=== PATIENT | female | born 1990 | race Caucasian/White ===

== ENCOUNTER 2021-04-06 14:10 | Inpatient (IN) | payer OTHER ==
[~2021-04-06] VITALS: Ht 165.1 cm; Wt 84.9 kg
--- NOTE | 2021-04-06 14:10 | NUR ---
Arrived by ambulance from [place]. Got report from Hazel SAVAGE at 1323 pm. Alert and oriented to room. Side rails up x's 2 with call light in reach. Mother at bedside.
[2021-04-06 14:55] VITALS: BP 109/63
[2021-04-06] MEDS ORDERED: ACETAMINOPHEN 325 MG TABLET. PO PRN (15:00)
--- NOTE | 2021-04-06 15:04 | PDOC1 ---
History and Physical Date of Admission Date of Admission DATE: 04/06/21 TIME: 15:04 Identification/Chief Complaint Chief Complaint Abdominal pain Source Source: Patient History of Present Illness History of Present Illness Ms Frias is a 30-year-old female with no PMHx who initially presented to [facility] complaining of right lower quadrant pain. Onset was 1 day ago without any known inciting event, trauma, mechanism of injury, ingestion or known exposure. She noted some abdominal fullness and initially thought it could have been start of her menstrual cycle. Palpation makes worse, nothing known makes better. Reports pain is focal and constant to right lower quadrant that is manageable when she is completely still. She has not taken anything for the pain. She has no history of any intra-abdominal surgeries. She does have history of known right sided ovarian cyst and x1 prior vaginal delivery that was uncomplicated 5 years ago. She had Mirena IUD removed in November 2020 and denies any vaginal bleeding, has been intermittently compliant with OCP since then. Initial temperature 97.7 F, pulse 103/min, respirations 18/min, blood pressure 114/83, pulse oximetry 96% on room air Labs WBC 13.9, Hb 13, platelets 240, NA 136, K3.7, BUN 11, CR 0.6, LFTs within normal laboratory limits, hCG undetectable Patient given IV fluids, fentanyl, Zofran and 2 g cefoxitin with improvement in symptoms Abdomen pelvis with acute appendicitis with appendiceal phlegmon. General surgery attending contacted at [facility] and case reviewed, he agreed need for transfer for surgical intervention Transferred to [facility] for surgical consultation. Seen bedside with her . Pain 10/10 on arrival, guarding. Past Medical History Cardiovascular: No pertinent hx Past Surgical History Past Surgical History: Other (left neck cyst and lymph node resection) Family History Family History: High Cholestrol Social History Smoke: No ALCOHOL: none Drugs: None Current Medications Current Medications Current Medications Ondansetron HCl (Zofran) 4 mg PRN Q4HRS PRN IVP NAUSEA/VOMITING; Start 04/06/21 at 15:00; Status UNV Fentanyl Citrate (Fentanyl 2ml Vial) 25 mcg PRN Q3HRS PRN IVP SEVERE PAIN 7-10; Start 04/06/21 at 15:00; Status UNV Acetaminophen (Tylenol) 650 mg PRN Q6HRS PRN PO MILD PAIN / TEMP > 100.3'F; Start 04/06/21 at 15:00; Status UNV Allergies Allergies: Coded Allergies: Sulfa (Sulfonamide Antibiotics) (Verified Allergy, Intermediate, 04/06/21) ROS General: YES: Chills, Appetite; No: Night Sweats, Fatigue, Malaise, Other PSYCHOLOGICAL ROS: No: Anxiety, Behavioral Disorder, Concentration difficultie, Decreased libido, Depression, Disorientation, Hallucinations, Hostility, Irritablity, Memory difficulties, Mood Swings, Obsessive thoughts, Physical abuse, Sexual abuse, Sleep disturbances, Suicidal ideation, Other Eyes: No Blurry vision, No Decreased vision, No Double vision, No Dry eyes, No Excessive tearing, No Eye Pain, No Itchy Eyes, No Loss of vision, No Photophobia, No Scotomata, No Uses contacts, No Uses glasses, No Other HEENT: No: Heacaches, Visual Changes, Hearing change, Nasal congestion, Nasal discharge, Oral lesions, Sinus pain, Sore Throat, Epistaxis, Sneezing, Snoring, Tinnitus, Vertigo, Vocal changes, Other ALLERGY AND IMMUNOLOGY: No: Hives, Insect Bite Sensitivity, Itchy/Watery Eyes, Nasal Congestion, Post Nasal Drip, Seasonal Allergies, Other Hematological and Lymphatic: No: Bleeding Problems, Blood Clots, Blood Transfusions, Brusing, Night Sweats, Pallor, Swollen Lymph Nodes, Other ENDOCRINE: No: Breast Changes, Galactorrhea, Hair Pattern Changes, Hot Flashes, Malaise/lethargy, Mood Swings, Palpitations, Polydipsia/polyuria, Skin Changes, Temperature Intolerance, Unexpected Weight Changes, Other Breast: No New/Changing Breast Lumps, No Nipple changes, No Nipple discharge, No Other Respiratory: No: Cough, Hemoptysis, Orthopnea, Pleuritic Pain, Shortness of breath, SOB with excertion, Sputum Changes, Stridor, Tachypnea, Wheezing, Other Cardiovascular: No Chest Pain, No Palpitations, No Orthopnea, No Paroxysmal Noc. Dyspnea, No Edema, No Lt Headedness, No Other Gastrointestinal: Yes Nausea, Yes Abdominal Pain; No Vomiting, No Diarrhea, No Constipation, No Melena, No Hematochezia, No Other Genitourinary: No Dysuria, No Frequency, No Incontinence, No Hematuria, No Retention, No Discharge, No Urgency, No Pain, No Flank Pain, No Other, No , No , No , No , No , No , No Musculoskeletal: No Gait Disturbance, No Joint Pain, No Joint Stiffness, No Joint Swelling, No Muscle Pain, No Muscular Weakness, No Pain In:, No Swelling In:, No Other Neurological: No Behavorial Changes, No Bowel/Bladder ControlChng, No Confusion, No Dizziness, No Gait Disturbance, No Headaches, No Impaired Coord/balance, No Memory Loss, No Numbness/Tingling, No Seizures, No Speech Problems, No Tremors, No Visual Changes, No Weakness, No Other Skin: No Dry Skin, No Eczema, No Hair Changes, No Lumps, No Mole Changes, No Mottling, No Nail Changes, No Pruritus, No Rash, No Skin Lesion Changes, No Other, No Acne Physical Exam General: Alert, Oriented X3, Cooperative, moderate distress HEENT: Atraumatic, PERRLA, EOMI, Mucous membr. moist/pink Lungs: Clear to auscultation, Normal air movement Heart: S1S2, RRR, no thrills, no rubs, no gallops, no murmurs Abdomen: Normal bowel sounds, No hepatosplenomegaly, No masses, Other (RLQ tender) Rectal Exam: not examined Extremities: No clubbing, No cyanosis, No edema, Normal pulses, No tenderness/swelling Skin: No rashes, No breakdown, No significant lesion Neuro: Normal gait, Normal speech, Strength at 5/5 X4 ext, Normal tone, Sensation intact, Cranial nerves 3-12 NL, Reflexes 2+ Psych/Mental Status: Mental status NL, Mood NL Vitals Vitals Vital Signs Date Time Temp Pulse Resp B/P (MAP) Pulse Ox O2 Delivery O2 Flow Rate FiO2 04/06/21 14:55 98.6 83 20 109/63 (78) 96 Room Air 98.6 Images Images Transabdominal/Transvaginal Ultrasound: Uterus: 85 x 58 x 44 mm. 6 mm endometrial stripe. Small amount of fluid within. Right Ovary: 38 x 26 x 24 mm. Left Ovary: 34 x 26 x 17 mm. Vascular flow identified to bilateral ovaries. Moderate free fluid. IMPRESSION: * Vascular flow is seen to the ovaries. * Moderate free fluid in the pelvis which is more than typically seen. * Tubular structure seen in the right lower quadrant but difficult to tell if this is secondary to a small bowel loop or the appendix and the appendix is not well evaluated on this exam. * There is some fluid within the endometrial canal. CT abdomen pelvis with intravenous contrast: Findings: In the right lower quadrant there is a dilated, approximately 1.2 cm diameter appendix with indistinct margins at the tip, abundant adjacent inflammatory fat stranding periappendiceal phlegmonous change. A small peripherally calcified centrally lucent density measuring approximately 5 mm diameter may represent appendicolith, coronal image 25. Adjacent reactive adenopathy in the right lower quadrant. There are small pelvic free fluid. No intraperitoneal free air. The lung bases are clear. Liver and spleen are unremarkable. The gallbladder, pancreas, adrenals and kidneys are unremarkable. The small bowel is within normal limits. No evidence of obstruction. The cecal wall is minimally thickened adjacent to the appendiceal inflammatory changes. The remainder of the colon is within normal limits. Unremarkable uterus. Multi follicular ovaries. Vasculature is within normal limits. Soft tissues and osseous structures are unremarkable. Impression: 1. Acute appendicitis with periappendiceal phlegmonous change and a suspected peripherally dense 5 mm appendicolith. VTE Prophylaxis Ordered VTE Prophylaxis Devices: No VTE Pharmacological Prophylaxi: No Assessment/Plan Assessment/Plan A/P: Acute appendicitis - IV zosyn, NPO, IV fentanyl with morphine as well. IV zofran. General surgery consulted. Rapid covid 19 ordered (She is vaccinated with J&J vaccine) Sepsis - due to appendicitis, given IVF, will continue antibiotics, monitor WBC FEN - NPO PPX - ambulatory FULL CODE Dispo - inpatient Justifications for Admission Abdominal Pain Indications Is patient in severe pain?: Yes Justification for admission: Patient has severe pain that requires (parenteral analgesic-please state analgesics and route) at least every 4 hours necessitating inpatient level of care. Is NPO status required?: Yes Justification for admission: Patient may require to be NPO for greater 24hours making it medically necessary to manage patient as inpatient. Other Justification ROVERTO BUTLER MD Apr 06, 2021 15:04
[2021-04-06] MEDS ORDERED: IV RINGERS,LACTATED 1000ML 1,000 ML IV SCH (15:15)
[2021-04-06] MEDS: ONDANSETRON PF 4 MG/2 ML VIAL. IVP PRN ×2 (15:29→21:27)
[2021-04-06] MEDS: fentaNYL PF VIAL 100 MCG/2 ML VIAL IVP PRN ×2 (15:31→19:43)
[2021-04-06] MEDS ORDERED: BISACODYL 10 MG SUPP.RECT. PR PRN (15:45)
--- NOTE | 2021-04-06 16:34 | PDOC2 ---
CONSULT Date of Consult Date of Consult DATE: 04/06/21 TIME: 16:32 Reason for Consult Reason for Consult: Acute appendicitis Referring Physician Referring Physician: Valdo Identification/Chief Complaint Chief Complaint Right lower quadrant abdominal pain Source Source: Chart review, Patient History of Present Illness Reason for Visit: 30-year-old female with right lower quadrant abdominal pain for 24 hours in the emergency department further evaluation CT scan shows signs consistent with acute appendicitis mildly elevated white count. Past Medical History Cardiovascular: No pertinent hx Past Surgical History Past Surgical History: Other (left neck cyst and lymph node resection) Family History Family History: High Cholestrol Social History No ALCOHOL: none Drugs: None Current Medications Current Medications Current Medications Ondansetron HCl (Zofran) 4 mg PRN Q4HRS PRN IVP NAUSEA/VOMITING Last administered on 04/06/21at 15:29; Start 04/06/21 at 15:00 Fentanyl Citrate (Fentanyl 2ml Vial) 25 mcg PRN Q3HRS PRN IVP SEVERE PAIN 7-10 Last administered on 04/06/21at 15:31; Start 04/06/21 at 15:00 Acetaminophen (Tylenol) 650 mg PRN Q6HRS PRN PO MILD PAIN / TEMP > 100.3'F; Start 04/06/21 at 15:00 Ringer's Solution 1,000 ml @ 100 mls/hr Q10H IV Last administered on 04/06/21at 15:26; Start 04/06/21 at 15:15; Stop 04/07/21 at 01:14 Morphine Sulfate (Morphine Sulfate) 4 mg PRN Q2HR PRN IV PAIN; Start 04/06/21 at 15:45 Bisacodyl (Dulcolax Supp) 10 mg PRN DAILY PRN MA CONSTIPATION; Start 04/06/21 at 15:45 Piperacillin Sod/ Tazobactam Sod 3.375 gm/Sodium Chloride 50 ml @ 100 mls/hr Q6HRS IV ; Start 04/06/21 at 17:00 Fentanyl Citrate (Fentanyl 2ml Vial) 25 mcg PRN Q5MIN PRN IVP MILD PAIN 1-3; Start 04/07/21 at 06:00; Stop 04/08/21 at 05:59 Fentanyl Citrate (Fentanyl 2ml Vial) 50 mcg PRN Q5MIN PRN IVP MODERATE PAIN 4- 6; Start 04/07/21 at 06:00; Stop 04/08/21 at 05:59 Morphine Sulfate (Morphine Sulfate) 1 mg PRN Q10MIN PRN IVP SEVERE PAIN 7-10; Start 04/07/21 at 06:00; Stop 04/08/21 at 05:59 Ringer's Solution 1,000 ml @ 30 mls/hr Q24H IV ; Start 04/07/21 at 06:00; Stop 04/07/21 at 17:59 Hydromorphone HCl (Dilaudid) 0.5 mg PRN Q10MIN PRN IVP SEVERE PAIN 7-10, 2nd CHOICE; Start 04/07/21 at 06:00; Stop 04/08/21 at 05:59 Prochlorperazine Edisylate (Compazine) 5 mg PACU PRN PRN IVP NAUSEA, MRX1; Start 04/07/21 at 06:00; Stop 04/08/21 at 05:59 Allergies Allergies: Coded Allergies: Sulfa (Sulfonamide Antibiotics) (Verified Allergy, Intermediate, 04/06/21) ROS Gastrointestinal: Yes Abdominal Pain Physical Exam General: Alert, Oriented X3, Cooperative, mild distress HEENT: Atraumatic, EOMI Lungs: Clear to auscultation, Normal air movement Heart: Regular rate, No murmurs Abdomen: Normal bowel sounds, Soft, Other (Tender to palpation right lower quadrant) Extremities: No edema Skin: No significant lesion Neuro: Normal speech Psych/Mental Status: Mental status NL Vitals VITALS Vital Signs Date Time Temp Pulse Resp B/P (MAP) Pulse Ox O2 Delivery O2 Flow Rate FiO2 04/06/21 15:31 Room Air 04/06/21 14:55 98.6 83 20 109/63 (78) 96 98.6 Assessment/Plan Assessment/Plan Acute appendicitis plan laparoscopic appendectomy in MIRIAN Ahn MD Apr 06, 2021 16:34
[2021-04-06] MEDS: MORPHINE SULFATE 4 MG/ML INJ. IV PRN ×2 (16:36→21:27)
[2021-04-06] MEDS: PIPERACILLIN/TAZOBACTAM 3.375 GM in IV NORMAL SALINE 50ML 50 ML IV SCH ×2 (18:00→18:28)
[2021-04-06] MEDS: KETOROLAC 15 MG/ML VIAL. IVP SCH (18:29)
--- NOTE | 2021-04-06 18:36 | NUR ---
Zosyn duplicate order.
[2021-04-06 19:00] VITALS: BP 100/53
[2021-04-06 19:13] LABS: BILIRUBIN,URINE NEGATIVE (NEG); CLARITY,URINE CLEAR; COLOR,URINE YELLOW; NITRITE,URINE NEGATIVE (NEG); PH,URINE 6.5 (<5.0-8.0); PROTEIN,URINE NEGATIVE (NEG-TRACE); UROBILINOGEN,URINE 0.2 mg/dL (0.2 mg/dL)
[2021-04-06 19:19] LABS: BACTERIA,URINE FEW /HPF (0-FEW); RBC,URINE OCC /HPF (0-2); WBC,URINE 0 /HPF (0-4)
[2021-04-06] MEDS ORDERED: ZOLPIDEM 5 MG TABLET. PO PRN (20:00)
[2021-04-06] MEDS ORDERED: fentaNYL PF VIAL 100 MCG/2 ML VIAL IVP PRN ×2 (20:00)
[2021-04-06 23:00] VITALS: BP 91/56
[2021-04-07] MEDS: KETOROLAC 15 MG/ML VIAL. IVP SCH ×3 (00:02→07:22)
[2021-04-07] MEDS: PIPERACILLIN/TAZOBACTAM 3.375 GM in IV NORMAL SALINE 50ML 50 ML IV SCH ×4 (00:02→17:52)
[2021-04-07] MEDS ORDERED: PROCHLORPERAZINE 10 MG/2 ML VIAL. IVP PRN ×2 (06:00→07:15)
[2021-04-07] MEDS ORDERED: fentaNYL PF VIAL 100 MCG/2 ML VIAL IVP PRN ×4 (06:00→07:15)
[2021-04-07] MEDS ORDERED: IV RINGERS,LACTATED 1000ML 1,000 ML IV SCH ×2 (06:00→07:15)
[2021-04-07] MEDS ORDERED: HYDROmorphone 2 MG/ML VIAL IVP PRN ×2 (06:00→07:15)
--- NOTE | 2021-04-07 06:59 | NUR ---
Report to JANETTE Orta; pt transferred to PACU at this time.
[2021-04-07] MEDS ORDERED: BUPIVACAINE-EPI 0.5% 30 ML VIAL KIT. ONE (07:10)
[2021-04-07 07:11] LABS: BASO # 0.1 x10^3/uL (0.0-0.2); BASO % 1 % (0-3); EOS # 0.1 x10^3/uL (0.0-0.7); EOS % 0 % (0-3); HEMATOCRIT 36.6 % (36.0-47.0); HEMOGLOBIN 12.3 g/dL (12.0-15.5); LYMPH # 1.3 x10^3/uL (1.0-4.8); LYMPH % 11 % (24-48); MEAN CORPUSCULAR HEMOGLOBIN 30 pg (25-35); MEAN CORPUSCULAR HGB CONC 34 g/dL (31-37); MEAN CORPUSCULAR VOLUME 89 fL (79-100); MONO # 1.1 x10^3/uL (0.0-1.1); MONO % 9 % (0-9); NEUT # 9.8 x10^3/uL (1.8-7.7); NEUT % 79 % (31-73); PLATELET COUNT 230 x10^3/uL (140-400); RED BLOOD COUNT 4.11 x10^6/uL (3.50-5.40); RED CELL DISTRIBUTION WIDTH 12.9 % (11.5-14.5); WHITE BLOOD COUNT 12.4 x10^3/uL (4.0-11.0)
[2021-04-07] MEDS ORDERED: MORPHINE SULFATE 2 MG/ML INJ. IVP PRN (07:15)
[2021-04-07] MEDS ORDERED: PROPOFOL 10 MG/ML (20ML) VIAL. IV ONE (07:15)
[2021-04-07] MEDS ORDERED: ONDANSETRON PF 4 MG/2 ML VIAL. ONE (07:15)
[2021-04-07] MEDS ORDERED: DEXAMETHASONE SOD PHOS 4 MG/ML VIAL ONE (07:15)
[2021-04-07] MEDS ORDERED: LIDOCAINE 2% PF 5 ML VIAL. ONE (07:15)
[2021-04-07] MEDS ORDERED: fentaNYL PF VIAL 250 MCG/5 ML VIAL ONE (07:16)
[2021-04-07] MEDS ORDERED: ROCURONIUM 50 MG/5 ML VIAL. ONE (07:16)
[2021-04-07] MEDS ORDERED: PHENYLEPHRINE in 0.9% NACL PF 1 MG/10 ML SYRINGE. IV ONE (07:18)
[2021-04-07] MEDS ORDERED: MIDAZOLAM HCL/PF 2 MG/2 ML VIAL. ONE (07:18)
[2021-04-07 07:34] LABS: ALBUMIN 2.9 g/dL (3.4-5.0); ALBUMIN/GLOBULIN RATIO 0.7 (1.0-1.7); CALCIUM 8.8 mg/dL (8.5-10.1); CREATININE 0.7 mg/dL (0.6-1.0); GFR 98.3; POTASSIUM 3.6 mmol/L (3.5-5.1); TOTAL BILIRUBIN 0.9 mg/dL (0.2-1.0); TOTAL PROTEIN 6.8 g/dL (6.4-8.2)
[2021-04-07] MEDS ORDERED: KETOROLAC 30 MG/ML VIAL. ONE (08:18)
[2021-04-07] MEDS ORDERED: GLYCOPYRROLATE 1 MG/5 ML VIAL. ONE (08:18)
[2021-04-07] MEDS ORDERED: NEOSTIGMINE METHYLSULFATE 5 MG/5 ML SYRINGE. ONE (08:19)
--- NOTE | 2021-04-07 08:28 | PDOC4 ---
Operative Note Operative Note Date: April 072020 at 826 Preoperative diagnosis: Acute appendicitis Postoperative diagnosis: Same Procedure: Laparoscopic appendectomy Surgeon: Riley Specimen: Appendix Dictation: Patient is a 30-year-old female was mated to the hospital with right lower quadrant abdominal pain and a CT scan showing signs consistent with acute appendicitis. Procedure laparoscopic appendectomy was explained to the patient detail risk benefits were also discussed including bleeding infection injury to intra-abdominal contents pus necessitating further open operations alternatives to this procedure also discussed with the patient who seemed to understand and gave a verbal and written consent to have the procedure performed. Patient was taken to the operating room placed in the supine position general anesthesia was initiated once patient was sleeping intubated her abdomen was prepped and draped usual sterile fashion using ChloraPrep. Area just below the umbilicus was injected with quarter percent Marcaine with epinephrine incision was made 11 blade scalpel and a varies needle was placed within the abdomen creating pneumoperitoneum once this was complete 12 mm port was placed in a 5 mm camera is placed within the abdomen which was inspected was noted in the right lower quadrant inflamed appendix with some free fluid. 5 mm port was placed low in the midline in the pelvis and a 5 mm port was placed in the right midabdomen. The base of the appendix was grasped retracted towards the anterior abdominal wall a window was propagated through the mesoappendix at the base of the appendix with a [place] dissector an Endo SPIKE stapler was used to staple and transect the base of the appendix there is the appendix was pretty densely adherent to the cecum was bluntly dissected off of the cecum the mesoappendix was then stapled and transected with a Endo SPIKE stapler and the appendix was placed in Endo Catch bag removed and the umbilicus right lower quadrant pelvis were irrigated and suctioned dry hemostasis deemed to be appropriate the pneumoperitoneum was reduced all ports were removed the fascial defect at the umbilicus was closed with a [id number] 0 Vicryl suture and the skin was reapproximated all port sites with 4-0 subcuticular Monocryl Mastisol Steri- Strips and island dressings were applied. Patient was awakened and extubated in the operating room taken to recovery in stable condition all sponge instrument needle counts listed as correct estimated blood loss 10 mL MIRIAN ROMERO MD Apr 07, 2021 08:28
[2021-04-07] MEDS ORDERED: SEVOFLURANE 31 TO 60 MINUTES. IH ONE (08:34)
[2021-04-07] MEDS ORDERED: MORPHINE SULFATE 2 MG/ML INJ. ONE (09:04)
[2021-04-07] MEDS: MORPHINE SULFATE 2 MG/ML INJ. IVP PRN ×2 (09:06→09:19)
[2021-04-07 10:00] VITALS: BP 105/70
--- NOTE | 2021-04-07 10:09 | NUR ---
SW following. Discussed with RN, pt from home with , room air, NPO, Rapid COVID-19 negative. Pt having a lap appy. RN advised no SW needs at this time. SW will continue to follow.
[2021-04-07 10:15] VITALS: BP 107/68
[2021-04-07 10:30] VITALS: BP 110/65
[2021-04-07 10:45] VITALS: BP 108/70
--- NOTE | 2021-04-07 10:48 | PDOC ---
[employer] PROGRESS NOTE Date of Service DOS: DATE: 04/07/21 TIME: 10:46 Chief Complaint Chief Complaint Acute appendicitis - IV zosyn, NPO, IV fentanyl with morphine as well. IV zofran. General surgery consulted. Rapid covid 19 ordered (She is vaccinated with J&J vaccine) Sepsis - due to appendicitis, given IVF, will continue antibiotics, monitor WBC FEN - NPO PPX - ambulatory FULL CODE Dispo - inpatient History of Present Illness History of Present Illness Ms Frias is a 30-year-old female with no PMHx who initially presented to [facility] complaining of right lower quadrant pain. Onset was 1 day ago without any known inciting event, trauma, mechanism of injury, ingestion or known exposure. She noted some abdominal fullness and initially thought it could have been start of her menstrual cycle. Palpation makes worse, nothing known makes better. Reports pain is focal and constant to right lower quadrant that is manageable when she is completely still. She has not taken anything for the pain. She has no history of any intra-abdominal surgeries. She does have history of known right sided ovarian cyst and x1 prior vaginal delivery that was uncomplicated 5 years ago. She had Mirena IUD removed in November 2020 and denies any vaginal bleeding, has been intermittently compliant with OCP since then. Initial temperature 97.7 F, pulse 103/min, respirations 18/min, blood pressure 114/83, pulse oximetry 96% on room air Labs WBC 13.9, Hb 13, platelets 240, NA 136, K3.7, BUN 11, CR 0.6, LFTs within normal laboratory limits, hCG undetectable Patient given IV fluids, fentanyl, Zofran and 2 g cefoxitin with improvement in symptoms Abdomen pelvis with acute appendicitis with appendiceal phlegmon. General surgery attending contacted at [facility] and case reviewed, he agreed need for transfer for surgical intervention Transferred to [facility] for surgical consultation. Seen bedside with her . Pain 10/10 on arrival, guarding. 04/07: Patient seen s/p laparoscopic appendectomy. Some postsurgical tenderness. Discussed discharge likely tomorrow, patient okay with that. Vitals/I&O Vitals/I&O: Vital Signs Date Time Temp Pulse Resp B/P (MAP) Pulse Ox O2 Delivery O2 Flow Rate FiO2 04/07/21 10:15 107/68 (81) 04/07/21 10:00 98.3 77 18 95 Room Air 98.3 04/07/21 08:35 10 I & O 04/06/21 04/06/21 04/07/21 15:00 23:00 07:00 Intake Total 550 ml 1100 ml Balance 550 ml 1100 ml Physical Exam General: Alert, Oriented X3, Cooperative, mild distress Heart: Regular rate, No murmurs Abdomen: Normal bowel sounds, Soft, Other (Tender to palpation right lower quadrant) Extremities: No edema Skin: No significant lesion Labs Labs: Laboratory Tests Test 04/06/21 16:20 04/06/21 17:25 04/06/21 19:45 04/07/21 06:50 SARS-CoV-2 RNA (ARSH) Negative (Negative) Urine Collection Type Unknown Urine Color Yellow Urine Clarity Clear Urine pH 6.5 (<5.0-8.0) Urine Specific [place] >=1.030 (1.000-1.030) Urine Protein Negative mg/dL (NEG-TRACE) Urine Glucose (UA) Negative mg/dL (NEG) Urine Ketones (Stick) >=80 mg/dL (NEG) Urine Blood Trace (NEG) Urine Nitrite Negative (NEG) Urine Bilirubin Negative (NEG) Urine Urobilinogen Dipstick 0.2 mg/dL (0.2 mg/dL) Urine Leukocyte Esterase Negative (NEG) Urine RBC Occ /HPF (0-2) Urine WBC 0 /HPF (0-4) Urine Squamous Epithelial Cells Mod /LPF Urine Bacteria Few /HPF (0-FEW) SARS-CoV-2 Antigen (Rapid) Negative (NEGATIVE) White Blood Count 12.4 x10^3/uL (4.0-11.0) Red Blood Count 4.11 x10^6/uL (3.50-5.40) Hemoglobin 12.3 g/dL (12.0-15.5) Hematocrit 36.6 % (36.0-47.0) Mean Corpuscular Volume 89 fL (79-100) Mean Corpuscular Hemoglobin 30 pg (25-35) Mean Corpuscular Hemoglobin Concent 34 g/dL (31-37) Red Cell Distribution Width 12.9 % (11.5-14.5) Platelet Count 230 x10^3/uL (140-400) Neutrophils (%) (Auto) 79 % (31-73) Lymphocytes (%) (Auto) 11 % (24-48) Monocytes (%) (Auto) 9 % (0-9) Eosinophils (%) (Auto) 0 % (0-3) Basophils (%) (Auto) 1 % (0-3) Neutrophils # (Auto) 9.8 x10^3/uL (1.8-7.7) Lymphocytes # (Auto) 1.3 x10^3/uL (1.0-4.8) Monocytes # (Auto) 1.1 x10^3/uL (0.0-1.1) Eosinophils # (Auto) 0.1 x10^3/uL (0.0-0.7) Basophils # (Auto) 0.1 x10^3/uL (0.0-0.2) Sodium Level 139 mmol/L (136-145) Potassium Level 3.6 mmol/L (3.5-5.1) Chloride Level 101 mmol/L (98-107) Carbon Dioxide Level 28 mmol/L (21-32) Anion Gap 10 (6-14) Blood Urea Nitrogen 8 mg/dL (7-20) Creatinine 0.7 mg/dL (0.6-1.0) Estimated GFR (Cockcroft-Gault) 98.3 BUN/Creatinine Ratio 11 (6-20) Glucose Level 97 mg/dL (70-99) Calcium Level 8.8 mg/dL (8.5-10.1) Total Bilirubin 0.9 mg/dL (0.2-1.0) Aspartate Amino Transf (AST/SGOT) 8 U/L (15-37) Alanine Aminotransferase (ALT/SGPT) 17 U/L (14-59) Alkaline Phosphatase 73 U/L (46-116) Total Protein 6.8 g/dL (6.4-8.2) Albumin 2.9 g/dL (3.4-5.0) Albumin/Globulin Ratio 0.7 (1.0-1.7) Comment Review of Relevant I have reviewed the following items eliseo (where applicable) has been applied. Medications: Current Medications Medications (Trade) Dose Ordered Sig/Melvi Route PRN Reason Start Time Stop Time Status Last Admin Dose Admin Ondansetron HCl (Zofran) 4 mg PRN Q4HRS PRN IVP NAUSEA/VOMITING 9/15/21 15:00 04/06/21 21:27 Fentanyl Citrate (Fentanyl 2ml Vial) 25 mcg PRN Q3HRS PRN IVP MILD PAIN 1-3 04/06/21 15:00 04/06/21 19:43 Ringer's Solution 1,000 ml @ 100 mls/hr Q10H IV 04/06/21 15:15 04/07/21 05:49 DC 04/06/21 15:26 Morphine Sulfate (Morphine Sulfate) 4 mg PRN Q2HR PRN IV PAIN NOT CONTROLLED BY FENTANY 04/06/21 15:45 04/06/21 21:27 Piperacillin Sod/ Tazobactam Sod 3.375 gm/Sodium Chloride 50 ml @ 100 mls/hr Q6HRS IV 04/06/21 17:00 04/07/21 06:16 Morphine Sulfate (Morphine Sulfate) 1 mg PRN Q10MIN PRN IVP SEVERE PAIN 7-10 04/07/21 06:00 04/07/21 18:00 04/07/21 09:19 Ketorolac Tromethamine (Toradol 15mg Vial) 15 mg Q6HRS IVP 04/06/21 18:00 04/07/21 17:59 04/07/21 06:15 Zolpidem Tartrate (Ambien) 5 mg PRN QHS PRN PO INSOMNIA 04/06/21 20:00 04/06/21 21:16 Bupivacaine HCl/ Epinephrine Bitart (Sensorcain-Epi 0.5% Kit) 30 ml STK-MED ONCE .ROUTE 04/07/21 07:10 04/07/21 07:10 DC 04/07/21 08:10 Justifications for Admission Abdominal Pain Indications Is patient in severe pain?: Yes Justification for admission: Patient has severe pain that requires (parenteral analgesic-please state analgesics and route) at least every 4 hours necessitating inpatient level of care. Is NPO status required?: Yes Justification for admission: Patient may require to be NPO for greater 24hours making it medically necessary to manage patient as inpatient. Other Justification LAUREN SKELTON MD Apr 07, 2021 10:48
[2021-04-07 11:15] VITALS: BP 104/62
[2021-04-07] MEDS: MORPHINE SULFATE 4 MG/ML INJ. IV PRN ×2 (12:49→15:32)
[2021-04-07 15:05] VITALS: BP 112/70
[2021-04-07] MEDS ORDERED: LACT1CAP19 PO (18:13)
[2021-04-07] MEDS ORDERED: TRAM50TA PO (18:13)
[2021-04-07] MEDS ORDERED: AMOX1TAB61 PO (18:13)
--- NOTE | 2021-04-07 18:32 | NUR ---
Discharge Note: ALEXANDRIA WILDER [address] Discharge instructions and discharge home medications reviewed with Patient and spouse and a copy given. All questions have been answered and understanding verbalized. The following instructions and handouts were given: information about follow up appointments, medications, activity, diet. Discontinued lines and drains: IV line in right AC removed, catheter tip intact. Patient discharged to home with self care with , wheelchair used for mobility to discharge vehicle.
[2021-04-08] MEDS ORDERED: LACTOBACILLUS RHAMNOSUS GG 1 CAPSULE. PO SCH (09:00)
--- NOTE | 2021-04-08 10:11 | PDOC3 ---
Discharge Summary Visit Information Date of Admission: Apr 06, 2021 Date of Discharge: Apr 07, 2021 Brief Hospital Course Allergies Allergies Coded Allergies Type Severity Reaction Last Updated Verified Sulfa (Sulfonamide Antibiotics) Allergy Intermediate 04/06/21 Yes Vital Signs Vital Signs Date Time Temp Pulse Resp B/P (MAP) Pulse Ox O2 Delivery O2 Flow Rate FiO2 04/07/21 15:05 97.8 99 18 112/70 (84) 97 Room Air 97.8 04/07/21 08:35 10 Lab Results Laboratory Tests Test 04/06/21 16:20 04/06/21 17:25 04/06/21 19:45 04/07/21 06:50 SARS-CoV-2 RNA (ARSH) Negative (Negative) Urine Collection Type Unknown Urine Color Yellow Urine Clarity Clear Urine pH 6.5 (<5.0-8.0) Urine Specific [place] >=1.030 (1.000-1.030) Urine Protein Negative mg/dL (NEG-TRACE) Urine Glucose (UA) Negative mg/dL (NEG) Urine Ketones (Stick) >=80 mg/dL (NEG) Urine Blood Trace (NEG) Urine Nitrite Negative (NEG) Urine Bilirubin Negative (NEG) Urine Urobilinogen Dipstick 0.2 mg/dL (0.2 mg/dL) Urine Leukocyte Esterase Negative (NEG) Urine RBC Occ /HPF (0-2) Urine WBC 0 /HPF (0-4) Urine Squamous Epithelial Cells Mod /LPF Urine Bacteria Few /HPF (0-FEW) SARS-CoV-2 Antigen (Rapid) Negative (NEGATIVE) White Blood Count 12.4 x10^3/uL (4.0-11.0) Red Blood Count 4.11 x10^6/uL (3.50-5.40) Hemoglobin 12.3 g/dL (12.0-15.5) Hematocrit 36.6 % (36.0-47.0) Mean Corpuscular Volume 89 fL (79-100) Mean Corpuscular Hemoglobin 30 pg (25-35) Mean Corpuscular Hemoglobin Concent 34 g/dL (31-37) Red Cell Distribution Width 12.9 % (11.5-14.5) Platelet Count 230 x10^3/uL (140-400) Neutrophils (%) (Auto) 79 % (31-73) Lymphocytes (%) (Auto) 11 % (24-48) Monocytes (%) (Auto) 9 % (0-9) Eosinophils (%) (Auto) 0 % (0-3) Basophils (%) (Auto) 1 % (0-3) Neutrophils # (Auto) 9.8 x10^3/uL (1.8-7.7) Lymphocytes # (Auto) 1.3 x10^3/uL (1.0-4.8) Monocytes # (Auto) 1.1 x10^3/uL (0.0-1.1) Eosinophils # (Auto) 0.1 x10^3/uL (0.0-0.7) Basophils # (Auto) 0.1 x10^3/uL (0.0-0.2) Sodium Level 139 mmol/L (136-145) Potassium Level 3.6 mmol/L (3.5-5.1) Chloride Level 101 mmol/L (98-107) Carbon Dioxide Level 28 mmol/L (21-32) Anion Gap 10 (6-14) Blood Urea Nitrogen 8 mg/dL (7-20) Creatinine 0.7 mg/dL (0.6-1.0) Estimated GFR (Cockcroft-Gault) 98.3 BUN/Creatinine Ratio 11 (6-20) Glucose Level 97 mg/dL (70-99) Calcium Level 8.8 mg/dL (8.5-10.1) Total Bilirubin 0.9 mg/dL (0.2-1.0) Aspartate Amino Transf (AST/SGOT) 8 U/L (15-37) Alanine Aminotransferase (ALT/SGPT) 17 U/L (14-59) Alkaline Phosphatase 73 U/L (46-116) Total Protein 6.8 g/dL (6.4-8.2) Albumin 2.9 g/dL (3.4-5.0) Albumin/Globulin Ratio 0.7 (1.0-1.7) Brief Hospital Course Ms. Frias is a 30 old female who presented with acute appendicitis. Consultation with general surgery. She laparoscopic appendectomy without complication. She was stable for discharge the next day course of antibiotics follow-up with PCP and general surgery outpatient. Discharge Information Condition at Discharge: Improved Disposition/Orders: D/C to Home Scheduled Amoxicillin/Potassium Clav (Augmentin 875-125 Tablet) 1 Each Tablet, 1 TAB PO BID for Appendicitis for 7 Days, #14 Ref 0 Prescribed by: ROVERTO BUTLER MD on 04/07/211812 Lactobacillus Rhamnosus Gg (Culturelle) 1 Each Cap.sprink, 1 CAP PO BID for Appendicitis for 7 Days, #14 Prescribed by: ROVERTO BUTLER MD on 04/07/211812 Scheduled PRN Tramadol Hcl (Tramadol Hcl) 50 Mg Tablet, 50 MG PO PRN Q6HRS PRN for PAIN for 6 Days, #15 Prescribed by: ROVERTO BUTLER MD on 04/07/211812 Justicifation of Admission Dx: Justifications for Admission: Justification of Admission Dx: Yes LAUREN SKELTON MD Apr 08, 2021 10:11
== END 2021-04-07 18:32 | disposition home or self-care (01) | DRG 854 ==
LOC: 4 NORTH 14:10
PROVIDERS: ADMIT Internal Medicine; ATTEND Internal Medicine
PROC: 0DTJ4ZZ Resection of Appendix, Percutaneous Endoscopic Approach (ICD-10-PCS; principal; 2021-04-07 08:00)
DX: A41.9 Sepsis, unspecified organism (principal); K35.80 Unspecified acute appendicitis; Z20.822 Contact with and (suspected) exposure to COVID-19; Z88.2 Allergy status to sulfonamides; Z79.899 Other long term (current) drug therapy; Z88.8 Allergy status to other drugs, medicaments and biological substances
CPT/HCPCS: 36415; 80053; 81001; 85025; 87426; A4223; A4314; A4930; J1100; J1885; J2250; J2270; J2370; J2405; J2543; J2704; J2710; J3010; J3490; J7120; U0003; U0005; G0378

== ENCOUNTER 2021-05-06 13:13 | Inpatient (IN) | payer OTHER ==
[2021-05-06] VITALS (13 sets, daily range): BP systolic 95–137; BP diastolic 56–77
[~2021-05-06] VITALS: Ht 165.1 cm; Wt 75.0 kg
[~2021-05-06 13:13] MED LIST: AMOX1TAB61 PO; LACT1CAP19 PO; TRAM50TA PO
[2021-05-06] MEDS ORDERED: PIPERACILLIN/TAZOBACTAM 3.375 GM in IV NORMAL SALINE 50ML 50 ML IV ONE (13:30)
[2021-05-06] MEDS ORDERED: IV NORMAL SALINE 1000ML BAG 1,000 ML IV SCH (13:30)
--- NOTE | 2021-05-06 13:52 | PHYS DOC ---
Past Medical History Past Surgical History: Appendectomy (DESHAWN BAPTISTE APRN) Smoking Status: Never Smoker Alcohol Use: None (DESHAWN BAPTISTE APRN) General Adult EDM: Chief Complaint: POST-OP PROBLEM HPI: HPI: Patient is a 30 year old female who presents with appendectomy by Dr. Lin on April 06. She states that she saw Dr. Lin 2 days ago and let him know that she was having pain and she states that on Sunday night she was actually having fevers. She states that he told her that she must have injured her abdomen somehow. She states she then went to a different doctor and they sent her to diagnostic imaging center and had a CT done today that showed a possible abscess in that right lower quadrant. He sent her here for evaluation today. Patient denies needing any pain medication at this time. She is rating her pain about 4 out of 10. She denies nausea, vomiting, diarrhea, constipation, dizziness, headache, chest pain, shortness of air. (DESHAWN BAPTISTE APRN) Review of Systems: Review of Systems: Constitutional: + fever or denies chills. [] Eyes: Denies change in visual acuity. [] HENT: Denies nasal congestion or sore throat. [] Respiratory: Denies cough or shortness of breath. [] Cardiovascular: Denies chest pain or edema. [] GI: +abdominal pain, denies nausea, vomiting, bloody stools or diarrhea. [] : Denies dysuria. [] Musculoskeletal: Denies back pain or joint pain. [] Integument: Denies rash. [] Neurologic: Denies headache, focal weakness or sensory changes. [] Endocrine: Denies polyuria or polydipsia. [] Lymphatic: Denies swollen glands. [] Psychiatric: Denies depression or anxiety. [] (DESHAWN BAPTISTE APRN) Heart Score: C/O Chest Pain: No (DESHAWN BAPTISTE APRN) Current Medications: Current Medications Medications (Trade) Dose Ordered Sig/Melvi Start Time Stop Time Status Last Admin Dose Admin Piperacillin Sod/ Tazobactam Sod 3.375 gm/Sodium Chloride 50 ml @ 100 mls/hr 1X ONCE 05/06/21 13:30 05/06/21 13:59 Sodium Chloride 1,000 ml @ 1,000 mls/hr Q1H 10/15/21 13:30 05/06/21 14:29 (DESHAWN BAPTISTE CHIL[employer] DIRECTOR) Allergies: Allergies: Allergies Coded Allergies Type Severity Reaction Last Updated Verified Sulfa (Sulfonamide Antibiotics) Allergy Intermediate 04/06/21 Yes (DESHAWN BAPTISTE APRN) Physical Exam: PE: Constitutional: Well developed, well nourished, no acute distress, non-toxic appearance. [] HENT: Normocephalic, atraumatic, bilateral external ears normal, oropharynx moist, no oral exudates, nose normal. [] Eyes: PERRLA, EOMI, conjunctiva normal, no discharge. [] Neck: Normal range of motion, no tenderness, supple, no stridor. [] Cardiovascular:Heart rate regular rhythm, no murmur [] Lungs & Thorax: Bilateral breath sounds clear to auscultation [] Abdomen: Bowel sounds normal, soft, right lower quadrant tenderness, no masses, no pulsatile masses. [] Skin: Warm, dry, no erythema, no rash. [] Back: No tenderness, no CVA tenderness. [] Extremities: No tenderness, no cyanosis, no clubbing, ROM intact, no edema. [] Neurologic: Alert and oriented X 3, normal motor function, normal sensory function, no focal deficits noted. [] Psychologic: Affect normal, judgement normal, mood normal. [] (DESHAWN BAPTISTE CHILDR[employer] DIRECTOR) Current Patient Data: Vital Signs: Vital Signs Date Time Temp Pulse Resp B/P (MAP) Pulse Ox O2 Delivery O2 Flow Rate FiO2 05/06/21 13:25 98.6 105 12 132/83 (99) 99 Room Air 98.6 (DESHAWN BAP[employer]ISTE [employer] DIRECTOR) EKG: EKG: [] (DESHAWN BAP[employer]E [employer] DIRECTOR) Radiology/Procedures: Radiology/Procedures: [] (DESHAWN BAP[employer]E [employer]IL[employer] DIRECTOR) Course & Med Decision Making: Course & Med Decision Making Pertinent Labs and Imaging studies reviewed. (See chart for details) See HPI. Alert and oriented x4. Ambulatory steady gait. Skin pink warm and dry. Right lower quadrant tenderness but no rigidity or guarding. Abdomen is soft. The diagnostic imaging center did send over a copy of the CT report. It showed abnormal proximal ascending colon with a 9 cm segment of mural wall thickening. Moderate extensive pericolonic inflammatory changes also in the right lower quadrant. A less than 3 cm fluid collection in the right lower quadrant posterior to the ascending colon is consistent with either postoperative fluid collection or abscess. Small amount of pelvic free fluid. Bilateral ovarian cyst. Mild diffuse enlargement of the heterogeneity of the right psoas muscle, also likely inflammatory. Afebrile. I have started Zosyn and a fluid bolus IV. Patient admitted to hospitalist. [] (DESHAWN BAPTISTE APRN) Dragon Disclaimer: Dragon Disclaimer: This electronic medical record was generated, in whole or in part, using a voice recognition dictation system. (DESHAWN BAPTISTE APRN) Departure Departure Impression: Primary Impression: Post-operative infection Qualified Codes: T81.40XA - Infection following a procedure, unspecified, initial encounter Disposition: ADMITTED INPATIENT Admitting Physician: LEON (DESHAWN BAPTISTE APRN) Condition: STABLE Referrals: JANEY VILLA (PCP) Attending Signature Attending Signature I have reviewed the PA/MARINE FITTER's note and plan of care. I was available for consultation as needed during the patient's visit in the emergency department. I agree with the clinical impression, plan, and disposition. (MEET PRATER DO) DESHAWN BAPTISTE APRN May 06, 2021 13:52 MEET PRATER DO May 07, 2021 06:49
[2021-05-06 14:22] LABS: BILIRUBIN,URINE NEGATIVE (NEG); CLARITY,URINE CLEAR; COLOR,URINE YELLOW; NITRITE,URINE NEGATIVE (NEG); PH,URINE 5.5 (<5.0-8.0); PROTEIN,URINE NEGATIVE (NEG-TRACE)
[2021-05-06 14:23] LABS: BASO % 0 % (0-3); EOS % 0 % (0-3); HEMATOCRIT 28.7 % (36.0-47.0); HEMOGLOBIN 9.2 g/dL (12.0-15.5); LYMPH # 1.5 x10^3/uL (1.0-4.8); LYMPH % 15 % (24-48); MEAN CORPUSCULAR HEMOGLOBIN 28 pg (25-35); MEAN CORPUSCULAR HGB CONC 32 g/dL (31-37); MEAN CORPUSCULAR VOLUME 86 fL (79-100); MONO # 0.6 x10^3/uL (0.0-1.1); MONO % 6 % (0-9); NEUT # 7.7 x10^3/uL (1.8-7.7); NEUT % 78 % (31-73); PLATELET COUNT 461 x10^3/uL (140-400); RED BLOOD COUNT 3.33 x10^6/uL (3.50-5.40); RED CELL DISTRIBUTION WIDTH 13.6 % (11.5-14.5); WHITE BLOOD COUNT 9.8 x10^3/uL (4.0-11.0)
[2021-05-06 14:32] LABS: CALCIUM 8.8 mg/dL (8.5-10.1); CREATININE 0.6 mg/dL (0.6-1.0); GFR 117.4; POTASSIUM 3.3 mmol/L (3.5-5.1)
[2021-05-06 14:46] LABS: BACTERIA,URINE FEW /HPF (0-FEW); WBC,URINE OCC /HPF (0-4)
[2021-05-06 14:46] LABS: ALBUMIN 2.5 g/dL (3.4-5.0); ALBUMIN/GLOBULIN RATIO 0.5 (1.0-1.7); TOTAL BILIRUBIN 0.3 mg/dL (0.2-1.0); TOTAL PROTEIN 7.7 g/dL (6.4-8.2)
--- NOTE | 2021-05-06 15:08 | PDOC1 ---
History and Physical Date of Admission Date of Admission DATE: 05/06/21 TIME: 15:08 Identification/Chief Complaint Chief Complaint Abdominal pain Source Source: Caregiver, Chart review, Patient History of Present Illness History of Present Illness Ms Frias is a 30-year-old female with no PMHx who presents from outpatient imaging center for complaints of abdominal pain and subjective fevers for the past week. Reports pain is focal and to right lower quadrant when she is moving. She went to her general surgery on 05/04 c/o pain and subjective fevers that began 05/03 and thinks she was instructed to treat it as abdominal muscle strain. Had a PCP visit 05/05 and went to diagnostic imaging center and had a CT done today that she states showed a possible abscess in that right lower quadrant. Pain / 10 only with movement that has been relieved with ibuprofen. She denies nausea, vomiting, diarrhea, constipation, dizziness, headache, chest pain, shortness of air. Imaging report: "Abnormal proximal ascending colon with a 9 cm segment of mural wall thickening. Moderate extensive pericolonic inflammatory changes also in the right lower quadrant. A less than 3 cm fluid collection in the right lower quadrant posterior to the ascending colon is consistent with either postoperative fluid collection or abscess. Small amount of pelvic free fluid. Bilateral ovarian cyst. Mild diffuse enlargement of the heterogeneity of the right psoas muscle, also likely inflammatory." Labs with WBC 9.8, Hb 9.2, platelets 461, NA 138, K3.3, BUN 8, CR 0.6, glucose 88, lactate 0.8, calcium 8.8, bilirubin 0.3, AST 24, ALT 30, alkaline phosphatase 172, albumin 2.5, urinalysis negative hCG negative leuk esterase negative nitrites large blood. ED called for admission, ordered Zosyn and a fluid bolus IV. I discussed with interventional radiology to further investigate for possible abscess drainage. Admitted for further care. Historically She was seen at [facility] in [place] 04/06/2021 transferred to [facility] for treatment for acute appendicitis with uncomplicated laparoscopic appendectomy on 04/07/2021. She does have history of known right sided ovarian cyst and x1 prior vaginal delivery that was uncomplicated 5 years ago. She had Mirena IUD removed in November 2020 and denies any vaginal bleeding, has been intermittently compliant with OCP since then. Past Medical History Cardiovascular: No pertinent hx Past Surgical History Past Surgical History: Appendectomy (04/07/2021), Other (Mirena) Family History Family History: High Cholestrol Social History Smoke: No ALCOHOL: none Drugs: None Current Medications Current Medications Current Medications Sodium Chloride 1,000 ml @ 1,000 mls/hr Q1H IV Last administered on 05/06/21at 15:04; Start 05/06/21 at 13:30; Stop 05/06/21 at 14:29; Status DC Piperacillin Sod/ Tazobactam Sod 3.375 gm/Sodium Chloride 50 ml @ 100 mls/hr 1X ONCE IV ; Start 05/06/21 at 13:30; Stop 05/06/21 at 13:59; Status DC Sodium Chloride 1,000 ml @ 125 mls/hr Q8H IV ; Start 05/06/21 at 15:15; Stop 05/07/21 at 15:14 Potassium Chloride/Dextrose/ Sod Cl 1,000 ml @ 80 mls/hr [id number] IV ; Start 05/06/21 at 15:15; Stop 05/07/21 at 03:44; Status UNV Active Scripts Active Tramadol Hcl 50 Mg Tablet 50 Mg PO PRN Q6HRS PRN 6 Days Augmentin 875-125 Tablet (Amoxicillin/Potassium Clav) 1 Each Tablet 1 Tab PO BID 7 Days Culturelle (Lactobacillus Rhamnosus Gg) 1 Each Cap.sprink 1 Cap PO BID 7 Days Allergies Allergies: Coded Allergies: Sulfa (Sulfonamide Antibiotics) (Verified Allergy, Intermediate, 04/06/21) ROS General: YES: Fatigue, Malaise, Appetite; No: Chills, Night Sweats, Other PSYCHOLOGICAL ROS: YES: Anxiety; No: Behavioral Disorder, Concentration difficultie, Decreased libido, Depression, Disorientation, Hallucinations, Hostility, Irritablity, Memory difficulties, Mood Swings, Obsessive thoughts, Physical abuse, Sexual abuse, Sleep disturbances, Suicidal ideation, Other Eyes: No Blurry vision, No Decreased vision, No Double vision, No Dry eyes, No Excessive tearing, No Eye Pain, No Itchy Eyes, No Loss of vision, No Photophobia, No Scotomata, No Uses contacts, No Uses glasses, No Other HEENT: No: Heacaches, Visual Changes, Hearing change, Nasal congestion, Nasal discharge, Oral lesions, Sinus pain, Sore Throat, Epistaxis, Sneezing, Snoring, Tinnitus, Vertigo, Vocal changes, Other ALLERGY AND IMMUNOLOGY: No: Hives, Insect Bite Sensitivity, Itchy/Watery Eyes, Nasal Congestion, Post Nasal Drip, Seasonal Allergies, Other Hematological and Lymphatic: No: Bleeding Problems, Blood Clots, Blood Transfusions, Brusing, Night Sweats, Pallor, Swollen Lymph Nodes, Other ENDOCRINE: No: Breast Changes, Galactorrhea, Hair Pattern Changes, Hot Flashes, Malaise/lethargy, Mood Swings, Palpitations, Polydipsia/polyuria, Skin Changes, Temperature Intolerance, Unexpected Weight Changes, Other Breast: No New/Changing Breast Lumps, No Nipple changes, No Nipple discharge, No Other Respiratory: No: Cough, Hemoptysis, Orthopnea, Pleuritic Pain, Shortness of breath, SOB with excertion, Sputum Changes, Stridor, Tachypnea, Wheezing, Other Cardiovascular: No Chest Pain, No Palpitations, No Orthopnea, No Paroxysmal Noc. Dyspnea, No Edema, No Lt Headedness, No Other Gastrointestinal: Yes Nausea, Yes Abdominal Pain; No Vomiting, No Diarrhea, No Constipation, No Melena, No Hematochezia, No Other Genitourinary: No Dysuria, No Frequency, No Incontinence, No Hematuria, No Retention, No Discharge, No Urgency, No Pain, No Flank Pain, No Other, No , No , No , No , No , No , No Musculoskeletal: No Gait Disturbance, No Joint Pain, No Joint Stiffness, No Joint Swelling, No Muscle Pain, No Muscular Weakness, No Pain In:, No Swelling In:, No Other Neurological: No Behavorial Changes, No Bowel/Bladder ControlChng, No Confusion, No Dizziness, No Gait Disturbance, No Headaches, No Impaired Coord/balance, No Memory Loss, No Numbness/Tingling, No Seizures, No Speech Problems, No Tremors, No Visual Changes, No Weakness, No Other Skin: No Dry Skin, No Eczema, No Hair Changes, No Lumps, No Mole Changes, No Mottling, No Nail Changes, No Pruritus, No Rash, No Skin Lesion Changes, No Other, No Acne Physical Exam General: Alert, Oriented X3, Cooperative, mild distress HEENT: Atraumatic, PERRLA, EOMI, Mucous membr. moist/pink Lungs: Clear to auscultation, Normal air movement Heart: S1S2, RRR, no thrills, no rubs, no gallops, no murmurs Abdomen: Normal bowel sounds, Soft, No hepatosplenomegaly, No masses, Other (RLQ tenderness) Rectal Exam: not examined Extremities: No clubbing, No cyanosis, No edema, Normal pulses, No tenderness/swelling Skin: No rashes, No breakdown, No significant lesion Neuro: Normal gait, Normal speech, Strength at 5/5 X4 ext, Normal tone, Sensation intact, Cranial nerves 3-12 NL, Reflexes 2+ Psych/Mental Status: Mental status NL, Mood NL Vitals Vitals Vital Signs Date Time Temp Pulse Resp B/P (MAP) Pulse Ox O2 Delivery O2 Flow Rate FiO2 05/06/21 13:25 98.6 105 12 132/83 (99) 99 Room Air 98.6 Labs Labs Laboratory Tests Test 05/06/21 13:48 05/06/21 14:03 05/06/21 14:06 Urine Collection Type Void Urine Color Yellow Urine Clarity Clear Urine pH 5.5 (<5.0-8.0) Urine Specific [place] >=1.030 (1.000-1.030) Urine Protein Negative mg/dL (NEG-TRACE) Urine Glucose (UA) Negative mg/dL (NEG) Urine Ketones (Stick) Trace mg/dL (NEG) Urine Blood Large (NEG) Urine Nitrite Negative (NEG) Urine Bilirubin Negative (NEG) Urine Urobilinogen Dipstick 1.0 mg/dL (0.2 mg/dL) Urine Leukocyte Esterase Negative (NEG) Urine RBC 11-20 /HPF (0-2) Urine WBC Occ /HPF (0-4) Urine Squamous Epithelial Cells Mod /LPF Urine Bacteria Few /HPF (0-FEW) White Blood Count 9.8 x10^3/uL (4.0-11.0) Red Blood Count 3.33 x10^6/uL (3.50-5.40) Hemoglobin 9.2 g/dL (12.0-15.5) Hematocrit 28.7 % (36.0-47.0) Mean Corpuscular Volume 86 fL (79-100) Mean Corpuscular Hemoglobin 28 pg (25-35) Mean Corpuscular Hemoglobin Concent 32 g/dL (31-37) Red Cell Distribution Width 13.6 % (11.5-14.5) Platelet Count 461 x10^3/uL (140-400) Neutrophils (%) (Auto) 78 % (31-73) Lymphocytes (%) (Auto) 15 % (24-48) Monocytes (%) (Auto) 6 % (0-9) Eosinophils (%) (Auto) 0 % (0-3) Basophils (%) (Auto) 0 % (0-3) Neutrophils # (Auto) 7.7 x10^3/uL (1.8-7.7) Lymphocytes # (Auto) 1.5 x10^3/uL (1.0-4.8) Monocytes # (Auto) 0.6 x10^3/uL (0.0-1.1) Eosinophils # (Auto) 0.0 x10^3/uL (0.0-0.7) Basophils # (Auto) 0.0 x10^3/uL (0.0-0.2) Sodium Level 138 mmol/L (136-145) Potassium Level 3.3 mmol/L (3.5-5.1) Chloride Level 100 mmol/L (98-107) Carbon Dioxide Level 29 mmol/L (21-32) Anion Gap 9 (6-14) Blood Urea Nitrogen 8 mg/dL (7-20) Creatinine 0.6 mg/dL (0.6-1.0) Estimated GFR (Cockcroft-Gault) 117.4 BUN/Creatinine Ratio 13 (6-20) Glucose Level 88 mg/dL (70-99) Lactic Acid Level 0.8 mmol/L (0.4-2.0) Calcium Level 8.8 mg/dL (8.5-10.1) Total Bilirubin 0.3 mg/dL (0.2-1.0) Aspartate Amino Transf (AST/SGOT) 24 U/L (15-37) Alanine Aminotransferase (ALT/SGPT) 30 U/L (14-59) Alkaline Phosphatase 172 U/L (46-116) Total Protein 7.7 g/dL (6.4-8.2) Albumin 2.5 g/dL (3.4-5.0) Albumin/Globulin Ratio 0.5 (1.0-1.7) Bedside Urine HCG, Qualitative Hcg negative (Negative) Laboratory Tests Test 05/06/21 13:48 05/06/21 14:03 05/06/21 14:06 Urine Collection Type Void Urine Color Yellow Urine Clarity Clear Urine pH 5.5 (<5.0-8.0) Urine Specific [place] >=1.030 (1.000-1.030) Urine Protein Negative mg/dL (NEG-TRACE) Urine Glucose (UA) Negative mg/dL (NEG) Urine Ketones (Stick) Trace mg/dL (NEG) Urine Blood Large (NEG) Urine Nitrite Negative (NEG) Urine Bilirubin Negative (NEG) Urine Urobilinogen Dipstick 1.0 mg/dL (0.2 mg/dL) Urine Leukocyte Esterase Negative (NEG) Urine RBC 11-20 /HPF (0-2) Urine WBC Occ /HPF (0-4) Urine Squamous Epithelial Cells Mod /LPF Urine Bacteria Few /HPF (0-FEW) White Blood Count 9.8 x10^3/uL (4.0-11.0) Red Blood Count 3.33 x10^6/uL (3.50-5.40) Hemoglobin 9.2 g/dL (12.0-15.5) Hematocrit 28.7 % (36.0-47.0) Mean Corpuscular Volume 86 fL (79-100) Mean Corpuscular Hemoglobin 28 pg (25-35) Mean Corpuscular Hemoglobin Concent 32 g/dL (31-37) Red Cell Distribution Width 13.6 % (11.5-14.5) Platelet Count 461 x10^3/uL (140-400) Neutrophils (%) (Auto) 78 % (31-73) Lymphocytes (%) (Auto) 15 % (24-48) Monocytes (%) (Auto) 6 % (0-9) Eosinophils (%) (Auto) 0 % (0-3) Basophils (%) (Auto) 0 % (0-3) Neutrophils # (Auto) 7.7 x10^3/uL (1.8-7.7) Lymphocytes # (Auto) 1.5 x10^3/uL (1.0-4.8) Monocytes # (Auto) 0.6 x10^3/uL (0.0-1.1) Eosinophils # (Auto) 0.0 x10^3/uL (0.0-0.7) Basophils # (Auto) 0.0 x10^3/uL (0.0-0.2) Sodium Level 138 mmol/L (136-145) Potassium Level 3.3 mmol/L (3.5-5.1) Chloride Level 100 mmol/L (98-107) Carbon Dioxide Level 29 mmol/L (21-32) Anion Gap 9 (6-14) Blood Urea Nitrogen 8 mg/dL (7-20) Creatinine 0.6 mg/dL (0.6-1.0) Estimated GFR (Cockcroft-Gault) 117.4 BUN/Creatinine Ratio 13 (6-20) Glucose Level 88 mg/dL (70-99) Lactic Acid Level 0.8 mmol/L (0.4-2.0) Calcium Level 8.8 mg/dL (8.5-10.1) Total Bilirubin 0.3 mg/dL (0.2-1.0) Aspartate Amino Transf (AST/SGOT) 24 U/L (15-37) Alanine Aminotransferase (ALT/SGPT) 30 U/L (14-59) Alkaline Phosphatase 172 U/L (46-116) Total Protein 7.7 g/dL (6.4-8.2) Albumin 2.5 g/dL (3.4-5.0) Albumin/Globulin Ratio 0.5 (1.0-1.7) Bedside Urine HCG, Qualitative Hcg negative (Negative) VTE Prophylaxis Ordered VTE Prophylaxis Devices: No VTE Pharmacological Prophylaxi: No Assessment/Plan Assessment/Plan A/P: Abdominal pain - likely related to right colonic inflammation with possible abscess. Unclear if this is post-op complication, given normal post-op course. Consider IBD, check fecal leuk Abdominal abscess - d/w IR to drain, culture, and will start empiric zosyn Anemia - Hb 12.3 on last admission, now 9.2, check iron, B12 Severe protein calorie malnutrition - possibly related to poor PO intake related to above Hypokalemia - likely due to poor PO intake, replace IV, check mag level. FEN - NPO, can ADAT after IR procedure PPX - ambulatory FULL CODE Dispo - inpatient Justifications for Admission Other Justification ROVERTO BUTLER MD May 06, 2021 15:08
[2021-05-06] MEDS: IV NORMAL SALINE 1000ML BAG 1,000 ML IV SCH ×2 (15:15→23:15)
[2021-05-06] MEDS ORDERED: POTASSIUM CL 40MEQ D5-0.45NACL 1,000 ML IV SCH (15:15)
[2021-05-06] MEDS ORDERED: LIDOCAINE WITH 8.4% SOD BICARB 3 ML DISP.SYRIN. ONE ×3 (15:29→16:18)
[2021-05-06] MEDS ORDERED: fentaNYL PF VIAL 100 MCG/2 ML VIAL ONE ×2 (15:42→16:12)
[2021-05-06] MEDS ORDERED: MIDAZOLAM HCL/PF 5 MG/5 ML VIAL. ONE (15:42)
--- NOTE | 2021-05-06 16:28 | PDOC ---
MODERATE SEDATION ASSESSMENT RISKS/ALTERNATIVES Risks/Alternatives Risks and alternatives of this type of sedation and procedure discussed with: RISK/ALTERNATIVES: Patient H & P ON CHART H & P H & P on chart and reviewed for co-morbid conditions and appropriate labs. H&P ON CHART: Yes STATUS PREG STATUS ASSESSED: Yes MEDS/ALLERGIES REVIEWED Meds/Allergies Reviewed Medications and Allergies including time and route of recently administered narcotics and sedatives. MEDS/ALLERGIES REVIEWED: Yes ASA RATING ASA RATING: II AIRWAY ASSESSMENT Airway Assessment Airway patency, oral function limitations, presence of caps, crowns, dentures, partials, and ability to extend neck assessed. AIRWAY ASSESSMENT: Yes MALLAMPATI SCORE MALLAMPATI SCORE: II PRE-SEDATION ASSESSMENT PRE-SEDATION ASSESSMENT: Yes SANJANA EUCEDA MD May 06, 2021 16:27
[2021-05-06] MEDS ORDERED: MIDAZOLAM HCL/PF 5 MG/5 ML VIAL. IV ONE (16:30)
[2021-05-06] MEDS ORDERED: LIDOCAINE WITH 8.4% SOD BICARB 3 ML DISP.SYRIN. IJ ONE (16:30)
[2021-05-06] MEDS ORDERED: fentaNYL PF VIAL 100 MCG/2 ML VIAL IVP PRN (16:30)
[2021-05-06] MEDS ORDERED: MIDAZOLAM HCL/PF 2 MG/2 ML VIAL. IV ONE (16:30)
[2021-05-06] MEDS ORDERED: ACETAMINOPHEN 325 MG TABLET. PO PRN (16:30)
[2021-05-06] MEDS ORDERED: ONDANSETRON PF 4 MG/2 ML VIAL. IVP PRN (16:30)
--- NOTE | 2021-05-06 16:31 | PDOC ---
BRIEF OPERATIVE NOTE Pre-Op Diagnosis Periappendiceal abscess Post-Op Diagnosis Periappendiceal abscess and phlegmon Procedure Performed CT aspiration x 2 Surgeon Charlie BRENNER minimal Anesthesia Type: Conscious Sedation Specimens Obtained 5cc aurelio pus from small pericecal abscess. No aspirate from edematous psoas muscle. Findings Small pericecal abscess and phlegmon. 5cc pus aspirated resulting in partial involution. Abscess was too small to accommodate a drain. Psoas swollen, uncertain if 2/2 edema or abscess. Aspiration was erformed, but yielded no fluid. Complications No immediate SANJANA EUCEDA MD May 06, 2021 16:31
[2021-05-06] MEDS ORDERED: fentaNYL PF VIAL 100 MCG/2 ML VIAL IV ONE (16:45)
--- NOTE | 2021-05-06 16:53 | RAD ---
Procedure: CT-guided abdominal aspiration x2 Clinical Indication: Adult female with periappendiceal abscess and phlegmon status post recent append ectomy. There is also nonspecific swelling of the right psoas muscle. Sedation: Conscious sedation using a combination of Versed and fentanyl was provided for 40 minutes, including continuous monitoring of the patients heart rate, rhythm, blood pressure, oxygen saturation and level of arousability by a trained independent observer. CT Exposure: One or more of the following individualized dose reduction techniques were utilized for this examination: 1. Automated exposure control 2. Adjustment of the mA and/or kV according to jamie ent size 3. Use of iterative reconstruction technique Contrast: None Sterility: All elements of maximal sterile barrier technique including the use of a cap, mask, steril e gown, sterile gloves, large sterile sheet, appropriate hand hygiene, and 2% chlorhexidine for cutan eous antisepsis (or acceptable alternative antiseptic per current guidelines) were followed for this procedure. Consent: The procedure was explained in its entirety to the patient or the patients designated repres entative by a member of the treatment team, including a discussion of the risks, benefits and commonl y accepted alternatives to the procedure, as well as the expected consequences of not performing the procedure. Discussion of the risks included, but was not limited to, those that are most frequent an d those that are rare but possibly severe or life-threatening, as well as the possibility of unforese en complications. Time Out: Immediately prior to initiation a procedural pause was conducted in the presence of the mem bers of the treatment team to verify correct patient identity, correct procedure, correct side if tim licable, correct patient position, availability of specialized equipment, review of patients allergie s, and assessment of current level of consciousness and arousability. Technique and Findings: Following informed consent, the patient was prepped and draped in usual steri le fashion. 1 percent lidocaine was used to achieve local anesthesia over the area of interest. A sma ll dermatotomy was made. Under periodic CT surveillance, a 19-gauge needle guide was advanced towards the 3 cm fluid collection adjacent to the cecum. A second needle was advanced through a second percu taneous site towards the abdomen the psoas muscle. Once both needles were in position, aspiration was performed. The abscess yielded 5 cc of aurelio pus, resulting in significant involution of this fluid collection. No aspirate was obtained from the psoas muscle, consistent with psoas edema rather than i ntramuscular abscess formation. Both needles were removed and hemostasis was achieved with manual com pression. Complications: No immediate Impression: 1. CT-guided aspiration of a pericecal abscess healing 5 cc of pus resulting in partial involution. T his abscess was too small to accommodate a drain. 2. Percutaneous aspiration of the right psoas muscle, yielding no aspirate, suggesting that psoas enl argement is consistent with edema rather than intramuscular abscess. Electronically signed by: Weston Guerra MD (05/06/2021 4:51 PM) [id number]
[2021-05-06] MEDS ORDERED: FLU VACC QUAD 21-22 (6MOS+) PF 0.5 ML SYRINGE. VAX IM ONE (17:00)
[2021-05-06] MEDS ORDERED: LORazepam 0.5 MG TABLET PO PRN (17:45)
[2021-05-06] MEDS ORDERED: PIPERACILLIN/TAZOBACTAM 3.375 GM in IV NORMAL SALINE 50ML 50 ML IV SCH (18:00)
[2021-05-06] MEDS ORDERED: DEXT30CA6 PO (18:56)
[2021-05-06] MEDS: PIPERACILLIN/TAZOBACTAM 3.375 GM in IV NORMAL SALINE 50ML 50 ML IV SCH (19:22)
[2021-05-06] MEDS: ZOLPIDEM 5 MG TABLET. PO PRN (21:19)
[2021-05-06] MEDS: MORPHINE SULFATE 2 MG/ML INJ. IVP PRN (21:19)
[2021-05-06] MEDS: traMADol 50 MG TABLET PO PRN (21:19)
[2021-05-07] MEDS: PIPERACILLIN/TAZOBACTAM 3.375 GM in IV NORMAL SALINE 50ML 50 ML IV SCH ×5 (00:03→23:31)
[2021-05-07] MEDS: MORPHINE SULFATE 2 MG/ML INJ. IVP PRN ×3 (03:34→19:42)
[2021-05-07] MEDS: traMADol 50 MG TABLET PO PRN (03:34)
[2021-05-07] MEDS: IV NORMAL SALINE 1000ML BAG 1,000 ML IV SCH (05:27)
[2021-05-07 07:00] VITALS: BP 103/76
[2021-05-07 08:02] LABS: RED BLOOD COUNT 3.05 x10^6/uL (3.50-5.40); WHITE BLOOD COUNT 6.2 x10^3/uL (4.0-11.0)
[2021-05-07 08:03] LABS: BASO % 0 % (0-3); EOS # 0.1 x10^3/uL (0.0-0.7); EOS % 1 % (0-3); HEMATOCRIT 26.4 % (36.0-47.0); HEMOGLOBIN 8.5 g/dL (12.0-15.5); LYMPH # 1.7 x10^3/uL (1.0-4.8); LYMPH % 28 % (24-48); MEAN CORPUSCULAR HEMOGLOBIN 28 pg (25-35); MEAN CORPUSCULAR HGB CONC 32 g/dL (31-37); MEAN CORPUSCULAR VOLUME 87 fL (79-100); MONO # 0.5 x10^3/uL (0.0-1.1); MONO % 8 % (0-9); NEUT # 3.9 x10^3/uL (1.8-7.7); NEUT % 63 % (31-73); PLATELET COUNT 400 x10^3/uL (140-400); RED CELL DISTRIBUTION WIDTH 13.8 % (11.5-14.5)
[2021-05-07 08:33] LABS: ALBUMIN/GLOBULIN RATIO 0.4 (1.0-1.7); CALCIUM 8.3 mg/dL (8.5-10.1); CREATININE 0.6 mg/dL (0.6-1.0); GFR 117.4; POTASSIUM 3.8 mmol/L (3.5-5.1); TOTAL BILIRUBIN 0.3 mg/dL (0.2-1.0); TOTAL PROTEIN 6.5 g/dL (6.4-8.2)
--- NOTE | 2021-05-07 09:59 | PDOC ---
[facility] PROGRESS NOTE Date of Service DOS: DATE: 05/07/21 TIME: 09:45 Chief Complaint Chief Complaint A/P: Abdominal pain - likely related to right colonic inflammation with possible abscess. Unclear if this is post-op complication, given normal post-op course. Less likely IBD, check fecal leuk Abdominal abscess - d/w IR to drain, culture, and will cont empiric zosyn Anemia - Hb 12.3 on last admission, now 9.2, iron consistent with inflammatory anemia, B12 WNL Severe protein calorie malnutrition - possibly related to poor PO intake related to above Hypokalemia - likely due to poor PO intaked, replace IV, checked mag level. FEN - Regular diet PPX - ambulatory FULL CODE Dispo - inpatient History of Present Illness History of Present Illness Ms Frias is a 30-year-old female with no PMHx who presents from outpatient imaging center for complaints of abdominal pain and subjective fevers for the past week. Reports pain is focal and to right lower quadrant when she is moving. She went to her general surgery on 05/04 c/o pain and subjective fevers that began 05/03 and thinks she was instructed to treat it as abdominal muscle strain. Had a PCP visit 05/05 and went to diagnostic imaging center and had a CT done today that she states showed a possible abscess in that right lower quadrant. Pain / 10 only with movement that has been relieved with ibuprofen. She denies nausea, vomiting, diarrhea, constipation, dizziness, headache, chest pain, shortness of air. Imaging report: "Abnormal proximal ascending colon with a 9 cm segment of mural wall thickening. Moderate extensive pericolonic inflammatory changes also in the right lower quadrant. A less than 3 cm fluid collection in the right lower quadrant posterior to the ascending colon is consistent with either postope rative fluid collection or abscess. Small amount of pelvic free fluid. Bilateral ovarian cyst. Mild diffuse enlargement of the heterogeneity of the right psoas muscle, also likely inflammatory." Labs with WBC 9.8, Hb 9.2, platelets 461, NA 138, K3.3, BUN 8, CR 0.6, glucose 88, lactate 0.8, calcium 8.8, bilirubin 0.3, AST 24, ALT 30, alkaline phosphatase 172, albumin 2.5, urinalysis negative hCG negative leuk esterase negative nitrites large blood. ED called for admission, ordered Zosyn and a fluid bolus IV. I discussed with interventional radiology to further investigate for possible abscess drainage. Admitted for further care. Afebrile overnight. Status post IR percutaneous drainage of abscess approximately 5 cc of purulent fluid sent for culture. Tolerating Zosyn well. Discussed with general surgery will repeat CBC and hope for culture results in the next 24 hours Vitals/I&O Vitals/I&O: Vital Signs Date Time Temp Pulse Resp B/P (MAP) Pulse Ox O2 Delivery O2 Flow Rate FiO2 05/07/21 08:00 Room Air 05/07/21 07:00 97.5 85 18 103/76 (85) 96 97.5 05/06/21 16:45 2.0 I & O 05/06/21 05/06/21 05/07/21 15:00 23:00 07:00 Intake Total 880 ml 320 ml Output Total 6 ml Balance 874 ml 320 ml Physical Exam General: Alert, Oriented X3, Cooperative, mild distress Abdomen: Normal bowel sounds, Soft, No hepatosplenomegaly, No masses, Other (RLQ tenderness) Extremities: No clubbing, No cyanosis, No edema, Normal pulses, No tende rness/swelling Skin: No rashes, No breakdown, No significant lesion Labs Labs: Laboratory Tests Test 05/06/21 13:48 05/06/21 14:03 05/06/21 14:06 05/07/21 07:45 Urine Collection Type Void Urine Color Yellow Urine Clarity Clear Urine pH 5.5 (<5.0-8.0) Urine Specific [place] >=1.030 (1.000-1.030) Urine Protein Negative mg/dL (NEG-TRACE) Urine Glucose (UA) Negative mg/dL (NEG) Urine Ketones (Stick) Trace mg/dL (NEG) Urine Blood Large (NEG) Urine Nitrite Negative (NEG) Urine Bilirubin Negative (NEG) Urine Urobilinogen Dipstick 1.0 mg/dL (0.2 mg/dL) Urine Leukocyte Esterase Negative (NEG) Urine RBC 11-20 /HPF (0-2) Urine WBC Occ /HPF (0-4) Urine Squamous Epithelial Cells Mod /LPF Urine Bacteria Few /HPF (0-FEW) White Blood Count 9.8 x10^3/uL (4.0-11.0) 6.2 x10^3/uL (4.0-11.0) Red Blood Count 3.33 x10^6/uL (3.50-5.40) 3.05 x10^6/uL (3.50-5.40) Hemoglobin 9.2 g/dL (12.0-15.5) 8.5 g/dL (12.0-15.5) Hematocrit 28.7 % (36.0-47.0) 26.4 % (36.0-47.0) Mean Corpuscular Volume 86 fL (79-100) 87 fL (79-100) Mean Corpuscular Hemoglobin 28 pg (25-35) 28 pg (25-35) Mean Corpuscular Hemoglobin Concent 32 g/dL (31-37) 32 g/dL (31-37) Red Cell Distribution Width 13.6 % (11.5-14.5) 13.8 % (11.5-14.5) Platelet Count 461 x10^3/uL (140-400) 400 x10^3/uL (140-400) Neutrophils (%) (Auto) 78 % (31-73) 63 % (31-73) Lymphocytes (%) (Auto) 15 % (24-48) 28 % (24-48) Monocytes (%) (Auto) 6 % (0-9) 8 % (0-9) Eosinophils (%) (Auto) 0 % (0-3) 1 % (0-3) Basophils (%) (Auto) 0 % (0-3) 0 % (0-3) Neutrophils # (Auto) 7.7 x10^3/uL (1.8-7.7) 3.9 x10^3/uL (1.8-7.7) Lymphocytes # (Auto) 1.5 x10^3/uL (1.0-4.8) 1.7 x10^3/uL (1.0-4.8) Monocytes # (Auto) 0.6 x10^3/uL (0.0-1.1) 0.5 x10^3/uL (0.0-1.1) Eosinophils # (Auto) 0.0 x10^3/uL (0.0-0.7) 0.1 x10^3/uL (0.0-0.7) Basophils # (Auto) 0.0 x10^3/uL (0.0-0.2) 0.0 x10^3/uL (0.0-0.2) Erythrocyte Sedimentation Rate > 130 (0-25) Sodium Level 138 mmol/L (136-145) 139 mmol/L (136-145) Potassium Level 3.3 mmol/L (3.5-5.1) 3.8 mmol/L (3.5-5.1) Chloride Level 100 mmol/L (98-107) 103 mmol/L (98-107) Carbon Dioxide Level 29 mmol/L (21-32) 27 mmol/L (21-32) Anion Gap 9 (6-14) 9 (6-14) Blood Urea Nitrogen 8 mg/dL (7-20) 6 mg/dL (7-20) Creatinine 0.6 mg/dL (0.6-1.0) 0.6 mg/dL (0.6-1.0) Estimated GFR (Cockcroft-Gault) 117.4 117.4 BUN/Creatinine Ratio 13 (6-20) 10 (6-20) Glucose Level 88 mg/dL (70-99) 92 mg/dL (70-99) Lactic Acid Level 0.8 mmol/L (0.4-2.0) Calcium Level 8.8 mg/dL (8.5-10.1) 8.3 mg/dL (8.5-10.1) Magnesium Level 2.0 mg/dL (1.8-2.4) Iron Level 24 ug/dL (50-170) Total Iron Binding Capacity 205 ug/dL (250-450) Iron Saturation 12 % (15-34) Total Bilirubin 0.3 mg/dL (0.2-1.0) 0.3 mg/dL (0.2-1.0) Aspartate Amino Transf (AST/SGOT) 24 U/L (15-37) 14 U/L (15-37) Alanine Aminotransferase (ALT/SGPT) 30 U/L (14-59) 25 U/L (14-59) Alkaline Phosphatase 172 U/L (46-116) 126 U/L (46-116) C-Reactive Protein, Quantitative 202.5 mg/L (0-3.3) Total Protein 7.7 g/dL (6.4-8.2) 6.5 g/dL (6.4-8.2) Albumin 2.5 g/dL (3.4-5.0) 2.0 g/dL (3.4-5.0) Albumin/Globulin Ratio 0.5 (1.0-1.7) 0.4 (1.0-1.7) Vitamin B12 Level 703 pg/mL (247-911) Bedside Urine HCG, Qualitative Hcg negative (Negative) Assessment and Plan Assessmemt and Plan Problems Medical Problems: (1) Post-operative infection Status: Acute Comment Review of Relevant I have reviewed the following items eliseo (where applicable) has been applied. Medications: Current Medications Medications (Trade) Dose Ordered Sig/Melvi Route PRN Reason Start Time Stop Time Status Last Admin Dose Admin Sodium Chloride 1,000 ml @ 1,000 mls/hr Q1H IV 05/06/21 13:30 05/06/21 14:29 DC 05/06/21 15:04 Sodium Chloride 1,000 ml @ 125 mls/hr Q8H IV 05/06/21 15:15 05/07/21 15:14 05/07/21 05:27 Potassium Chloride/Dextrose/ Sod Cl 1,000 ml @ 80 mls/hr [id number] IV 05/06/21 15:15 05/07/21 03:44 DC 05/06/21 18:03 Lidocaine HCl (Buffered Lidocaine 1%) 3 ml 1X ONCE IJ 05/06/21 16:30 05/06/21 16:31 DC 05/06/21 16:33 Midazolam HCl (Versed) 5 mg 1X ONCE IV 05/06/21 16:30 05/06/21 16:31 DC 05/06/21 16:30 Tramadol HCl (Ultram) 50 mg PRN Q6HRS PRN PO MODERATE-SEVERE PAIN 05/06/21 16:30 05/07/21 03:34 Fentanyl Citrate (Fentanyl 2ml Vial) 100 mcg 1X ONCE IV 05/06/21 16:45 05/06/21 16:46 DC 05/06/21 16:45 Piperacillin Sod/ Tazobactam Sod 3.375 gm/Sodium Chloride 50 ml @ 100 mls/hr Q6HRS IV 05/06/21 18:00 05/07/21 05:27 Morphine Sulfate (Morphine Sulfate) 2 mg PRN Q2HR PRN IVP PAIN 05/06/21 17:45 05/07/21 03:34 Zolpidem Tartrate (Ambien) 5 mg PRN QHS PRN PO INSOMNIA 05/06/21 17:45 05/06/21 21:19 Lorazepam (Ativan) 0.5 mg PRN Q8HRS PRN PO ANXIETY / AGITATION 05/06/21 17:45 05/06/21 21:18 Justifications for Admission Other Justification ROVERTO BUTLER MD May 07, 2021 09:59
--- NOTE | 2021-05-07 10:09 | PDOC ---
PROGRESS NOTES Date of Service DATE: 05/07/21 TIME: 10:08 Subjective Subjective doing ok, not much pain, no fevers Objective Objective Vital Signs Date Time Temp Pulse Resp B/P (MAP) Pulse Ox O2 Delivery O2 Flow Rate FiO2 05/07/21 08:00 Room Air 05/07/21 07:00 97.5 85 18 103/76 (85) 96 97.5 05/06/21 16:45 2.0 Intake and Output 05/07/21 07:00 Intake Total 1200 ml Output Total 6 ml Balance 1194 ml Intake Oral 1200 ml Output Drainage Total 6 ml # Voids 6 Physical Exam Abdomen: Soft, No tenderness Assessment Assessment Problems Medical Problems: (1) Post-operative infection Status: Acute Plan Plan of Care Continue IV abx, cultures taken; check wbc in am Comment Review of Relevant I have reviewed the following items eliseo (where applicable) has been applied. Labs Laboratory Tests Test 05/06/21 13:48 05/06/21 14:03 05/06/21 14:06 05/07/21 07:45 Urine Collection Type Void Urine Color Yellow Urine Clarity Clear Urine pH 5.5 (<5.0-8.0) Urine Specific [place] >=1.030 (1.000-1.030) Urine Protein Negative mg/dL (NEG-TRACE) Urine Glucose (UA) Negative mg/dL (NEG) Urine Ketones (Stick) Trace mg/dL (NEG) Urine Blood Large (NEG) Urine Nitrite Negative (NEG) Urine Bilirubin Negative (NEG) Urine Urobilinogen Dipstick 1.0 mg/dL (0.2 mg/dL) Urine Leukocyte Esterase Negative (NEG) Urine RBC 11-20 /HPF (0-2) Urine WBC Occ /HPF (0-4) Urine Squamous Epithelial Cells Mod /LPF Urine Bacteria Few /HPF (0-FEW) White Blood Count 9.8 x10^3/uL (4.0-11.0) 6.2 x10^3/uL (4.0-11.0) Red Blood Count 3.33 x10^6/uL (3.50-5.40) 3.05 x10^6/uL (3.50-5.40) Hemoglobin 9.2 g/dL (12.0-15.5) 8.5 g/dL (12.0-15.5) Hematocrit 28.7 % (36.0-47.0) 26.4 % (36.0-47.0) Mean Corpuscular Volume 86 fL (79-100) 87 fL (79-100) Mean Corpuscular Hemoglobin 28 pg (25-35) 28 pg (25-35) Mean Corpuscular Hemoglobin Concent 32 g/dL (31-37) 32 g/dL (31-37) Red Cell Distribution Width 13.6 % (11.5-14.5) 13.8 % (11.5-14.5) Platelet Count 461 x10^3/uL (140-400) 400 x10^3/uL (140-400) Neutrophils (%) (Auto) 78 % (31-73) 63 % (31-73) Lymphocytes (%) (Auto) 15 % (24-48) 28 % (24-48) Monocytes (%) (Auto) 6 % (0-9) 8 % (0-9) Eosinophils (%) (Auto) 0 % (0-3) 1 % (0-3) Basophils (%) (Auto) 0 % (0-3) 0 % (0-3) Neutrophils # (Auto) 7.7 x10^3/uL (1.8-7.7) 3.9 x10^3/uL (1.8-7.7) Lymphocytes # (Auto) 1.5 x10^3/uL (1.0-4.8) 1.7 x10^3/uL (1.0-4.8) Monocytes # (Auto) 0.6 x10^3/uL (0.0-1.1) 0.5 x10^3/uL (0.0-1.1) Eosinophils # (Auto) 0.0 x10^3/uL (0.0-0.7) 0.1 x10^3/uL (0.0-0.7) Basophils # (Auto) 0.0 x10^3/uL (0.0-0.2) 0.0 x10^3/uL (0.0-0.2) Erythrocyte Sedimentation Rate > 130 (0-25) Sodium Level 138 mmol/L (136-145) 139 mmol/L (136-145) Potassium Level 3.3 mmol/L (3.5-5.1) 3.8 mmol/L (3.5-5.1) Chloride Level 100 mmol/L (98-107) 103 mmol/L (98-107) Carbon Dioxide Level 29 mmol/L (21-32) 27 mmol/L (21-32) Anion Gap 9 (6-14) 9 (6-14) Blood Urea Nitrogen 8 mg/dL (7-20) 6 mg/dL (7-20) Creatinine 0.6 mg/dL (0.6-1.0) 0.6 mg/dL (0.6-1.0) Estimated GFR (Cockcroft-Gault) 117.4 117.4 BUN/Creatinine Ratio 13 (6-20) 10 (6-20) Glucose Level 88 mg/dL (70-99) 92 mg/dL (70-99) Lactic Acid Level 0.8 mmol/L (0.4-2.0) Calcium Level 8.8 mg/dL (8.5-10.1) 8.3 mg/dL (8.5-10.1) Magnesium Level 2.0 mg/dL (1.8-2.4) Iron Level 24 ug/dL (50-170) Total Iron Binding Capacity 205 ug/dL (250-450) Iron Saturation 12 % (15-34) Total Bilirubin 0.3 mg/dL (0.2-1.0) 0.3 mg/dL (0.2-1.0) Aspartate Amino Transf (AST/SGOT) 24 U/L (15-37) 14 U/L (15-37) Alanine Aminotransferase (ALT/SGPT) 30 U/L (14-59) 25 U/L (14-59) Alkaline Phosphatase 172 U/L (46-116) 126 U/L (46-116) C-Reactive Protein, Quantitative 202.5 mg/L (0-3.3) Total Protein 7.7 g/dL (6.4-8.2) 6.5 g/dL (6.4-8.2) Albumin 2.5 g/dL (3.4-5.0) 2.0 g/dL (3.4-5.0) Albumin/Globulin Ratio 0.5 (1.0-1.7) 0.4 (1.0-1.7) Vitamin B12 Level 703 pg/mL (247-911) Bedside Urine HCG, Qualitative Hcg negative (Negative) Laboratory Tests Test 05/06/21 13:48 05/06/21 14:03 05/06/21 14:06 05/07/21 07:45 Urine Collection Type Void Urine Color Yellow Urine Clarity Clear Urine pH 5.5 (<5.0-8.0) Urine Specific [place] >=1.030 (1.000-1.030) Urine Protein Negative mg/dL (NEG-TRACE) Urine Glucose (UA) Negative mg/dL (NEG) Urine Ketones (Stick) Trace mg/dL (NEG) Urine Blood Large (NEG) Urine Nitrite Negative (NEG) Urine Bilirubin Negative (NEG) Urine Urobilinogen Dipstick 1.0 mg/dL (0.2 mg/dL) Urine Leukocyte Esterase Negative (NEG) Urine RBC 11-20 /HPF (0-2) Urine WBC Occ /HPF (0-4) Urine Squamous Epithelial Cells Mod /LPF Urine Bacteria Few /HPF (0-FEW) White Blood Count 9.8 x10^3/uL (4.0-11.0) 6.2 x10^3/uL (4.0-11.0) Red Blood Count 3.33 x10^6/uL (3.50-5.40) 3.05 x10^6/uL (3.50-5.40) Hemoglobin 9.2 g/dL (12.0-15.5) 8.5 g/dL (12.0-15.5) Hematocrit 28.7 % (36.0-47.0) 26.4 % (36.0-47.0) Mean Corpuscular Volume 86 fL (79-100) 87 fL (79-100) Mean Corpuscular Hemoglobin 28 pg (25-35) 28 pg (25-35) Mean Corpuscular Hemoglobin Concent 32 g/dL (31-37) 32 g/dL (31-37) Red Cell Distribution Width 13.6 % (11.5-14.5) 13.8 % (11.5-14.5) Platelet Count 461 x10^3/uL (140-400) 400 x10^3/uL (140-400) Neutrophils (%) (Auto) 78 % (31-73) 63 % (31-73) Lymphocytes (%) (Auto) 15 % (24-48) 28 % (24-48) Monocytes (%) (Auto) 6 % (0-9) 8 % (0-9) Eosinophils (%) (Auto) 0 % (0-3) 1 % (0-3) Basophils (%) (Auto) 0 % (0-3) 0 % (0-3) Neutrophils # (Auto) 7.7 x10^3/uL (1.8-7.7) 3.9 x10^3/uL (1.8-7.7) Lymphocytes # (Auto) 1.5 x10^3/uL (1.0-4.8) 1.7 x10^3/uL (1.0-4.8) Monocytes # (Auto) 0.6 x10^3/uL (0.0-1.1) 0.5 x10^3/uL (0.0-1.1) Eosinophils # (Auto) 0.0 x10^3/uL (0.0-0.7) 0.1 x10^3/uL (0.0-0.7) Basophils # (Auto) 0.0 x10^3/uL (0.0-0.2) 0.0 x10^3/uL (0.0-0.2) Erythrocyte Sedimentation Rate > 130 (0-25) Sodium Level 138 mmol/L (136-145) 139 mmol/L (136-145) Potassium Level 3.3 mmol/L (3.5-5.1) 3.8 mmol/L (3.5-5.1) Chloride Level 100 mmol/L (98-107) 103 mmol/L (98-107) Carbon Dioxide Level 29 mmol/L (21-32) 27 mmol/L (21-32) Anion Gap 9 (6-14) 9 (6-14) Blood Urea Nitrogen 8 mg/dL (7-20) 6 mg/dL (7-20) Creatinine 0.6 mg/dL (0.6-1.0) 0.6 mg/dL (0.6-1.0) Estimated GFR (Cockcroft-Gault) 117.4 117.4 BUN/Creatinine Ratio 13 (6-20) 10 (6-20) Glucose Level 88 mg/dL (70-99) 92 mg/dL (70-99) Lactic Acid Level 0.8 mmol/L (0.4-2.0) Calcium Level 8.8 mg/dL (8.5-10.1) 8.3 mg/dL (8.5-10.1) Magnesium Level 2.0 mg/dL (1.8-2.4) Iron Level 24 ug/dL (50-170) Total Iron Binding Capacity 205 ug/dL (250-450) Iron Saturation 12 % (15-34) Total Bilirubin 0.3 mg/dL (0.2-1.0) 0.3 mg/dL (0.2-1.0) Aspartate Amino Transf (AST/SGOT) 24 U/L (15-37) 14 U/L (15-37) Alanine Aminotransferase (ALT/SGPT) 30 U/L (14-59) 25 U/L (14-59) Alkaline Phosphatase 172 U/L (46-116) 126 U/L (46-116) C-Reactive Protein, Quantitative 202.5 mg/L (0-3.3) Total Protein 7.7 g/dL (6.4-8.2) 6.5 g/dL (6.4-8.2) Albumin 2.5 g/dL (3.4-5.0) 2.0 g/dL (3.4-5.0) Albumin/Globulin Ratio 0.5 (1.0-1.7) 0.4 (1.0-1.7) Vitamin B12 Level 703 pg/mL (247-911) Bedside Urine HCG, Qualitative Hcg negative (Negative) Medications Current Medications Sodium Chloride 1,000 ml @ 1,000 mls/hr Q1H IV Last administered on 05/06/21at 15:04; Start 05/06/21 at 13:30; Stop 05/06/21 at 14:29; Status DC Piperacillin Sod/ Tazobactam Sod 3.375 gm/Sodium Chloride 50 ml @ 100 mls/hr 1X ONCE IV ; Start 05/06/21 at 13:30; Stop 05/06/21 at 13:59; Status DC Sodium Chloride 1,000 ml @ 125 mls/hr Q8H IV Last administered on 05/07/21at 05:27; Start 05/06/21 at 15:15; Stop 05/07/21 at 15:14 Potassium Chloride/Dextrose/ Sod Cl 1,000 ml @ 80 mls/hr [id number] IV Last administered on 05/06/21at 18:03; Start 05/06/21 at 15:15; Stop 05/07/21 at 03:44; Status DC Lidocaine HCl (Buffered Lidocaine 1%) 3 ml STK-MED ONCE .ROUTE ; Start 05/06/21 at 15:29; Stop 05/06/21 at 15:29; Status DC Midazolam HCl (Versed) 5 mg STK-MED ONCE .ROUTE ; Start 05/06/21 at 15:42; Stop 05/06/21 at 15:42; Status DC Fentanyl Citrate (Fentanyl 2ml Vial) 100 mcg STK-MED ONCE .ROUTE ; Start 05/06/21 at 15:42; Stop 05/06/21 at 15:42; Status DC Lidocaine HCl (Buffered Lidocaine 1%) 3 ml STK-MED ONCE .ROUTE ; Start 05/06/21 at 16:09; Stop 05/06/21 at 16:09; Status DC Fentanyl Citrate (Fentanyl 2ml Vial) 100 mcg STK-MED ONCE .ROUTE ; Start 05/06/21 at 16:12; Stop 05/06/21 at 16:13; Status DC Lidocaine HCl (Buffered Lidocaine 1%) 3 ml 1X ONCE IJ Last administered on 05/06/21at 16:33; Start 05/06/21 at 16:30; Stop 05/06/21 at 16:31; Status DC Midazolam HCl (Versed) 5 mg 1X ONCE IV Last administered on 05/06/21at 16:30; Start 05/06/21 at 16:30; Stop 05/06/21 at 16:31; Status DC Midazolam HCl (Versed) 2 mg 1X ONCE IV ; Start 05/06/21 at 16:30; Stop 05/06/21 at 16:36; Status DC Lidocaine HCl (Buffered Lidocaine 1%) 3 ml STK-MED ONCE .ROUTE ; Start 05/06/21 at 16:18; Stop 05/06/21 at 16:18; Status DC Piperacillin Sod/ Tazobactam Sod 3.375 gm/Sodium Chloride 50 ml @ 100 mls/hr Q6HRS IV ; Start 05/06/21 at 18:00; Stop 05/06/21 at 17:01; Status DC Acetaminophen (Tylenol) 650 mg PRN Q6HRS PRN PO MILD PAIN / TEMP > 100.3'F; Start 05/06/21 at 16:30 Ondansetron HCl (Zofran) 4 mg PRN Q4HRS PRN IVP NAUSEA/VOMITING; Start 05/06/21 at 16:30 Tramadol HCl (Ultram) 50 mg PRN Q6HRS PRN PO MODERATE-SEVERE PAIN Last administered on 05/07/21at 03:34; Start 05/06/21 at 16:30 Fentanyl Citrate (Fentanyl 2ml Vial) 25 mcg PRN Q3HRS PRN IVP SEVERE PAIN 7-10; Start 05/06/21 at 16:30 Fentanyl Citrate (Fentanyl 2ml Vial) 100 mcg 1X ONCE IV Last administered on 05/06/21at 16:45; Start 05/06/21 at 16:45; Stop 05/06/21 at 16:46; Status DC Influenza Virus Vaccine Quadrival (Flulaval Quad [id number] Syringe) 0.5 ml ONCE ONCE VAX IM ; Start 05/06/21 at 17:00; Stop 05/06/21 at 17:04; Status DC Piperacillin Sod/ Tazobactam Sod 3.375 gm/Sodium Chloride 50 ml @ 100 mls/hr Q6HRS IV Last administered on 05/07/21at 05:27; Start 05/06/21 at 18:00 Morphine Sulfate (Morphine Sulfate) 2 mg PRN Q2HR PRN IVP PAIN Last administered on 05/07/21at 03:34; Start 05/06/21 at 17:45 Zolpidem Tartrate (Ambien) 5 mg PRN QHS PRN PO INSOMNIA Last administered on 05/06/21at 21:19; Start 05/06/21 at 17:45 Lorazepam (Ativan) 0.5 mg PRN Q8HRS PRN PO ANXIETY / AGITATION Last administered on 05/06/21at 21:18; Start 05/06/21 at 17:45 Active Scripts Active Reported Adderall Xr 30 Mg Capsule (Dextroamphetamine/Amphetamine) 30 Mg Cap.er.24h 1 Cap PO DAILY MDD 1 Capsule(s) 30 Days Vitals/I & O Vital Sign - Last 24 Hours 05/06/21 05/06/21 05/06/21/15/21 13:25 14:00 14:27 14:57 Temp 98.6 98.6 Pulse 105 94 94 94 Resp 12 16 B/P (MAP) 132/83 (99) 122/80 (94) 114/73 (87) 117/74 (88) Pulse Ox 99 96 96 98 O2 Delivery Room Air Room Air Room Air Room Air 05/06/21 05/06/21 05/06/21 05/06/21 15:51 15:56 16:01 16:06 Pulse 92 87 90 94 Resp 21 13 16 17 Pulse Ox 99 99 97 97 O2 Delivery Nasal Cannula Nasal Cannula Nasal Cannula Nasal Cannula O2 Flow Rate 2.0 2.0 2.0 2.0 05/06/21 05/06/21 05/06/21 05/06/21 16:11 16:16 16:21 16:29 Pulse 98 94 83 93 Resp 17 23 21 23 Pulse Ox 98 99 99 99 O2 Delivery Nasal Cannula Nasal Cannula Nasal Cannula Nasal Cannula O2 Flow Rate 2.0 2.0 2.0 2.0 05/06/21 05/06/21 05/06/21 05/06/21 16:45 16:45 17:00 17:15 Temp 98.2 98.2 Pulse 88 Resp 21 20 B/P (MAP) 116/72 (87) 120/69 (86) 124/74 (91) Pulse Ox 99 97 O2 Delivery Nasal Cannula Room Air O2 Flow Rate 2.0 05/06/21 05/06/21 05/06/21 05/06/21 17:47 19:25 19:50 21:19 Temp 98.2 98.2 Pulse 92 Resp 16 B/P (MAP) 95/56 (69) Pulse Ox 99 O2 Delivery Room Air Room Air Room Air Room Air 05/06/21 05/06/21 05/06/21 05/06/21 21:19 21:49 21:49 23:51 Temp 98.3 98.3 Pulse 102 Resp 16 B/P (MAP) 108/60 (76) Pulse Ox 96 O2 Delivery Room Air Room Air Room Air Room Air 05/07/21 05/07/21 05/07/21 05/07/21 03:34 03:34 07:00 08:00 Temp 97.5 97.5 Pulse 85 Resp 18 B/P (MAP) 103/76 (85) Pulse Ox 96 O2 Delivery Room Air Room Air Room Air Room Air Intake and Output 05/06/21 05/06/21 05/07/21 15:00 23:00 07:00 Intake Total 880 ml 320 ml Output Total 6 ml Balance 874 ml 320 ml Justifications for Admission Other Justification LYNDON SALCEDO MD May 07, 2021 10:09
[2021-05-07 11:00] VITALS: BP 119/80
[2021-05-07 15:00] VITALS: BP 100/71
[2021-05-07 19:00] VITALS: BP 106/75
[2021-05-07] MEDS: IBUPROFEN 200 MG TABLET. PO PRN (19:36)
[2021-05-07] MEDS: LACTOBACILLUS RHAMNOSUS GG 1 CAPSULE. PO SCH (21:23)
[2021-05-07] MEDS: ZOLPIDEM 5 MG TABLET. PO PRN (21:23)
[2021-05-07 23:00] VITALS: BP 90/41
[2021-05-08 03:00] VITALS: BP 93/57
[2021-05-08 07:00] VITALS: BP 106/74
[2021-05-08] MEDS: PIPERACILLIN/TAZOBACTAM 3.375 GM in IV NORMAL SALINE 50ML 50 ML IV SCH (07:04)
[2021-05-08] MEDS: IBUPROFEN 200 MG TABLET. PO PRN (07:09)
--- NOTE | 2021-05-08 07:50 | PDOC ---
[facility] [facility] PROGRESS NOTE Date of Service DOS: DATE: 05/08/21 TIME: 07:50 Chief Complaint Chief Complaint A/P: Abdominal pain - likely related to right colonic inflammation with abscess s/p IR drainage. Unclear if this is post-op complication Abdominal abscess - d/w IR to drain, culture, and will cont empiric zosyn for today, d/c on empiric cipro + metronidazole, will change antibiotics based on final culture Anemia - Hb 12.3 on last admission, now 9.2, iron consistent with inflammatory anemia, B12 WNL Severe protein calorie malnutrition - possibly related to poor PO intake related to above Hypokalemia - likely due to poor PO intaked, replaced IV, checked mag level. FEN - Regular diet PPX - ambulatory FULL CODE Dispo - inpatient History of Present Illness History of Present Illness Ms Frias is a 30-year-old female with no PMHx who presents from outpatient imaging center for complaints of abdominal pain and subjective fevers for the past week. Reports pain is focal and to right lower quadrant when she is moving. She went to her general surgery on 05/04 c/o pain and subjective fevers that began 05/03 and thinks she was instructed to treat it as abdominal muscle strain. Had a PCP visit 05/05 and went to diagnostic imaging center and had a CT done today that she states showed a possible abscess in that right lower quadrant. Pain 4 / 10 only with movement that has been relieved with ibuprofen. She denies nausea, vomiting, diarrhea, constipation, dizziness, headache, chest pain, shortness of air. Imaging report: "Abnormal proximal ascending colon with a 9 cm segment of mural wall thickening. Moderate extensive pericolonic inflammatory changes also in the right lower quadrant. A less than 3 cm fluid collection in the right lower quadrant posterior to the ascending colon is consistent with either postoperative fluid collection or abscess. Small amount of pelvic free fluid. Bilateral ovarian cyst. Mild diffuse enlargement of the heterogeneity of the right psoas muscle, also likely inflammatory." Labs with WBC 9.8, Hb 9.2, platelets 461, NA 138, K3.3, BUN 8, CR 0.6, glucose 88, lactate 0.8, calcium 8.8, bilirubin 0.3, AST 24, ALT 30, alkaline phosphatase 172, albumin 2.5, urinalysis negative hCG negative leuk esterase negative nitrites large blood. ED called for admission, ordered Zosyn and a fluid bolus IV. I discussed with interventional radiology to further investigate for possible abscess drainage. Admitted for further care. Afebrile overnight. Status post IR percutaneous drainage of abscess approxim ately 5 cc of purulent fluid sent for culture. Tolerating Zosyn well. Discussed with general surgery will repeat CBC and hope for culture results in the next 24 hours Afebrile. Has some right lower quadrant fullness but her pain has resolved does have a little bit of pain on right leg extension likely psoas tendinitis. Gram stain with GNR and GPC. Patient mother are asking for a discharge home so she can be with her 5-year-old daughter. I discussed the risks and benefits of empiric coverage with ciprofloxacin and metronidazole and they were willing to change antibiotics if necessary when final culture results, and follow-up with general surgery for possible interval CT and office follow-up in the next 1 to 2 weeks. This is low risk for drug-resistant organisms and WBC count was never elevated was never septic, and likely abdominal infection is community-acquired. Vitals/I&O Vitals/I&O: Vital Signs Date Time Temp Pulse Resp B/P (MAP) Pulse Ox O2 Delivery O2 Flow Rate FiO2 05/08/21 03:00 97.6 78 18 93/57 (69) 98 Room Air 97.6 I & O 05/07/21 05/07/21 05/08/21 15:00 23:00 07:00 Intake Total 200 ml 240 ml 360 ml Balance 200 ml 240 ml 360 ml Physical Exam General: Alert, Oriented X3, Cooperative, mild distress Abdomen: Soft, No tenderness Extremities: No clubbing, No cyanosis, No edema, Normal pulses, No tenderness/swelling Skin: No rashes, No breakdown, No significant lesion Assessment and Plan Assessmemt and Plan Problems Medical Problems: (1) Post-operative infection Status: Acute Comment Review of Relevant I have reviewed the following items eliseo (where applicable) has been applied. Medications: Current Medications Medications (Trade) Dose Ordered Sig/Melvi Route PRN Reason Start Time Stop Time Status Last Admin Dose Admin Lactobacillus Rhamnosus (Culturelle) 1 cap BID PO 05/07/21 21:00 05/07/21 21:23 Ibuprofen (Motrin) 600 mg PRN Q6HRS PRN PO INFLAMMATION 05/07/21 19:30 05/08/21 07:09 Justifications for Admission Other Justification ROVERTO BUTLER MD May 08, 2021 07:50
[2021-05-08 08:33] LABS: BASO % 0 % (0-3); EOS # 0.1 x10^3/uL (0.0-0.7); EOS % 2 % (0-3); HEMATOCRIT 28.4 % (36.0-47.0); HEMOGLOBIN 9.3 g/dL (12.0-15.5); LYMPH # 1.5 x10^3/uL (1.0-4.8); LYMPH % 27 % (24-48); MEAN CORPUSCULAR HEMOGLOBIN 28 pg (25-35); MEAN CORPUSCULAR HGB CONC 33 g/dL (31-37); MEAN CORPUSCULAR VOLUME 86 fL (79-100); MONO # 0.4 x10^3/uL (0.0-1.1); MONO % 7 % (0-9); NEUT # 3.7 x10^3/uL (1.8-7.7); NEUT % 64 % (31-73); PLATELET COUNT 501 x10^3/uL (140-400); RED CELL DISTRIBUTION WIDTH 13.5 % (11.5-14.5); WHITE BLOOD COUNT 5.8 x10^3/uL (4.0-11.0)
--- NOTE | 2021-05-08 08:38 | NUR ---
Patients mother came to the desk with out mask on. Patients mother reminded of hospital policy stating masks have to be on at all times. Patients mother was visibly upset. Patients mom state " I need to know the nurses name from night time. " RN stated " Yvonne" Patients mother stated " I need her information, I need her last name, all her information." RN stated " Yvonne is her name, I cant give out her personal information." Patients mother stated " What is the aids name and who came to see her today?" RN stated, " Letty is her name and I have not seen any doctors." Patients mother stated " Well she is very upset right now, she's an emotional person but today she's crying a lot in there." RN stated "yes, we've talked earlier." Patients mother stated " Alright, thanks." patients mother walked back to room.
[2021-05-08] MEDS ORDERED: metroNIDAZOLE 500 MG TABLET PO SCH (09:15)
[2021-05-08] MEDS ORDERED: CIPROFLOXACIN HCL 250 MG TABLET. PO SCH (09:15)
[2021-05-08] MEDS ORDERED: hydrOXYzine 10 MG TABLET PO PRN (09:15)
[2021-05-08] MEDS ORDERED: METR-34 PO (09:21)
[2021-05-08] MEDS ORDERED: CIPR250T30 PO (09:21)
--- NOTE | 2021-05-08 09:26 | PDOC3 ---
Discharge Summary Visit Information Date of Admission: May 06, 2021 Date of Discharge: May 08, 2021 Admitting Diagnosis: Intra-abdominal abscess Final Diagnosis Problems Medical Problems: (1) Post-operative infection Status: Acute Brief Hospital Course Allergies Allergies Coded Allergies Type Severity Reaction Last Updated Verified Sulfa (Sulfonamide Antibiotics) Allergy Intermediate 04/06/21 Yes Vital Signs Vital Signs Date Time Temp Pulse Resp B/P (MAP) Pulse Ox O2 Delivery O2 Flow Rate FiO2 05/08/21 07:00 97.3 86 18 106/74 (85) 97 Room Air 97.3 Lab Results Laboratory Tests Test 05/06/21 13:48 05/06/21 14:03 05/06/21 14:06 05/07/21 07:45 Urine Collection Type Void Urine Color Yellow Urine Clarity Clear Urine pH 5.5 (<5.0-8.0) Urine Specific Talmage >=1.030 (1.000-1.030) Urine Protein Negative mg/dL (NEG-TRACE) Urine Glucose (UA) Negative mg/dL (NEG) Urine Ketones (Stick) Trace mg/dL (NEG) Urine Blood Large (NEG) Urine Nitrite Negative (NEG) Urine Bilirubin Negative (NEG) Urine Urobilinogen Dipstick 1.0 mg/dL (0.2 mg/dL) Urine Leukocyte Esterase Negative (NEG) Urine RBC 11-20 /HPF (0-2) Urine WBC Occ /HPF (0-4) Urine Squamous Epithelial Cells Mod /LPF Urine Bacteria Few /HPF (0-FEW) White Blood Count 9.8 x10^3/uL (4.0-11.0) 6.2 x10^3/uL (4.0-11.0) Red Blood Count 3.33 x10^6/uL (3.50-5.40) 3.05 x10^6/uL (3.50-5.40) Hemoglobin 9.2 g/dL (12.0-15.5) 8.5 g/dL (12.0-15.5) Hematocrit 28.7 % (36.0-47.0) 26.4 % (36.0-47.0) Mean Corpuscular Volume 86 fL (79-100) 87 fL (79-100) Mean Corpuscular Hemoglobin 28 pg (25-35) 28 pg (25-35) Mean Corpuscular Hemoglobin Concent 32 g/dL (31-37) 32 g/dL (31-37) Red Cell Distribution Width 13.6 % (11.5-14.5) 13.8 % (11.5-14.5) Platelet Count 461 x10^3/uL (140-400) 400 x10^3/uL (140-400) Neutrophils (%) (Auto) 78 % (31-73) 63 % (31-73) Lymphocytes (%) (Auto) 15 % (24-48) 28 % (24-48) Monocytes (%) (Auto) 6 % (0-9) 8 % (0-9) Eosinophils (%) (Auto) 0 % (0-3) 1 % (0-3) Basophils (%) (Auto) 0 % (0-3) 0 % (0-3) Neutrophils # (Auto) 7.7 x10^3/uL (1.8-7.7) 3.9 x10^3/uL (1.8-7.7) Lymphocytes # (Auto) 1.5 x10^3/uL (1.0-4.8) 1.7 x10^3/uL (1.0-4.8) Monocytes # (Auto) 0.6 x10^3/uL (0.0-1.1) 0.5 x10^3/uL (0.0-1.1) Eosinophils # (Auto) 0.0 x10^3/uL (0.0-0.7) 0.1 x10^3/uL (0.0-0.7) Basophils # (Auto) 0.0 x10^3/uL (0.0-0.2) 0.0 x10^3/uL (0.0-0.2) Erythrocyte Sedimentation Rate > 130 (0-25) Sodium Level 138 mmol/L (136-145) 139 mmol/L (136-145) Potassium Level 3.3 mmol/L (3.5-5.1) 3.8 mmol/L (3.5-5.1) Chloride Level 100 mmol/L (98-107) 103 mmol/L (98-107) Carbon Dioxide Level 29 mmol/L (21-32) 27 mmol/L (21-32) Anion Gap 9 (6-14) 9 (6-14) Blood Urea Nitrogen 8 mg/dL (7-20) 6 mg/dL (7-20) Creatinine 0.6 mg/dL (0.6-1.0) 0.6 mg/dL (0.6-1.0) Estimated GFR (Cockcroft-Gault) 117.4 117.4 BUN/Creatinine Ratio 13 (6-20) 10 (6-20) Glucose Level 88 mg/dL (70-99) 92 mg/dL (70-99) Lactic Acid Level 0.8 mmol/L (0.4-2.0) Calcium Level 8.8 mg/dL (8.5-10.1) 8.3 mg/dL (8.5-10.1) Magnesium Level 2.0 mg/dL (1.8-2.4) Iron Level 24 ug/dL (50-170) Total Iron Binding Capacity 205 ug/dL (250-450) Iron Saturation 12 % (15-34) Total Bilirubin 0.3 mg/dL (0.2-1.0) 0.3 mg/dL (0.2-1.0) Aspartate Amino Transf (AST/SGOT) 24 U/L (15-37) 14 U/L (15-37) Alanine Aminotransferase (ALT/SGPT) 30 U/L (14-59) 25 U/L (14-59) Alkaline Phosphatase 172 U/L (46-116) 126 U/L (46-116) C-Reactive Protein, Quantitative 202.5 mg/L (0-3.3) Total Protein 7.7 g/dL (6.4-8.2) 6.5 g/dL (6.4-8.2) Albumin 2.5 g/dL (3.4-5.0) 2.0 g/dL (3.4-5.0) Albumin/Globulin Ratio 0.5 (1.0-1.7) 0.4 (1.0-1.7) Vitamin B12 Level 703 pg/mL (247-911) Bedside Urine HCG, Qualitative Hcg negative (Negative) Test 05/08/21 07:30 White Blood Count 5.8 x10^3/uL (4.0-11.0) Red Blood Count 3.30 x10^6/uL (3.50-5.40) Hemoglobin 9.3 g/dL (12.0-15.5) Hematocrit 28.4 % (36.0-47.0) Mean Corpuscular Volume 86 fL (79-100) Mean Corpuscular Hemoglobin 28 pg (25-35) Mean Corpuscular Hemoglobin Concent 33 g/dL (31-37) Red Cell Distribution Width 13.5 % (11.5-14.5) Platelet Count 501 x10^3/uL (140-400) Neutrophils (%) (Auto) 64 % (31-73) Lymphocytes (%) (Auto) 27 % (24-48) Monocytes (%) (Auto) 7 % (0-9) Eosinophils (%) (Auto) 2 % (0-3) Basophils (%) (Auto) 0 % (0-3) Neutrophils # (Auto) 3.7 x10^3/uL (1.8-7.7) Lymphocytes # (Auto) 1.5 x10^3/uL (1.0-4.8) Monocytes # (Auto) 0.4 x10^3/uL (0.0-1.1) Eosinophils # (Auto) 0.1 x10^3/uL (0.0-0.7) Basophils # (Auto) 0.0 x10^3/uL (0.0-0.2) Laboratory Tests Test 05/08/21 07:30 White Blood Count 5.8 x10^3/uL (4.0-11.0) Red Blood Count 3.30 x10^6/uL (3.50-5.40) Hemoglobin 9.3 g/dL (12.0-15.5) Hematocrit 28.4 % (36.0-47.0) Mean Corpuscular Volume 86 fL (79-100) Mean Corpuscular Hemoglobin 28 pg (25-35) Mean Corpuscular Hemoglobin Concent 33 g/dL (31-37) Red Cell Distribution Width 13.5 % (11.5-14.5) Platelet Count 501 x10^3/uL (140-400) Neutrophils (%) (Auto) 64 % (31-73) Lymphocytes (%) (Auto) 27 % (24-48) Monocytes (%) (Auto) 7 % (0-9) Eosinophils (%) (Auto) 2 % (0-3) Basophils (%) (Auto) 0 % (0-3) Neutrophils # (Auto) 3.7 x10^3/uL (1.8-7.7) Lymphocytes # (Auto) 1.5 x10^3/uL (1.0-4.8) Monocytes # (Auto) 0.4 x10^3/uL (0.0-1.1) Eosinophils # (Auto) 0.1 x10^3/uL (0.0-0.7) Basophils # (Auto) 0.0 x10^3/uL (0.0-0.2) Brief Hospital Course Ms Frias is a 30-year-old female with no PMHx who presents from outpatient imaging center for complaints of abdominal pain and subjective fevers for the past week. Reports pain is focal and to right lower quadrant when she is moving. She went to her general surgery on 05/04 c/o pain and subjective fevers that began 05/03 and thinks she was instructed to treat it as abdominal muscle strain. Had a PCP visit 05/05 and went to diagnostic imaging center and had a CT done today that she states showed a possible abscess in that right lower quadrant. Pain 4 / 10 only with movement that has been relieved with ibuprofen. She denies nausea, vomiting, diarrhea, constipation, dizziness, headache, chest zack n, shortness of air. Imaging report: "Abnormal proximal ascending colon with a 9 cm segment of mural wall thickening. Moderate extensive pericolonic inflammatory changes also in the right lower quadrant. A less than 3 cm fluid collection in the right lower quadrant posterior to the ascending colon is consistent with either postoperative fluid collection or abscess. Small amount of pelvic free fluid. Bilateral ovarian cyst. Mild diffuse enlargement of the heterogeneity of the right psoas muscle, also likely inflammatory." Labs with WBC 9.8, Hb 9.2, platelets 461, NA 138, K3.3, BUN 8, CR 0.6, glucose 88, lactate 0.8, calcium 8.8, bilirubin 0.3, AST 24, ALT 30, alkaline phosphatase 172, albumin 2.5, urinalysis negative hCG negative leuk esterase negative nitrites large blood. ED called for admission, ordered Zosyn and a fluid bolus IV. I discussed with interventional radiology to further investigate for possible abscess drainage. Admitted for further care. Afebrile overnight. Status post IR percutaneous drainage of abscess approximately 5 cc of purulent fluid sent for culture. Tolerating Zosyn well. Discussed with general surgery will repeat CBC and hope for culture results in the next 24 hours Afebrile. Has some right lower quadrant fullness but her pain has resolved does have a little bit of pain on right leg extension likely psoas tendinitis. Gram stain with GNR and GPC. Patient mother are asking for a discharge home so she can be with her 5-year-old daughter. I discussed the risks and benefits of empiric coverage with ciprofloxacin and metronidazole and they were willing to change antibiotics if necessary when final culture results, and follow-up with general surgery for possible interval CT and office follow-up in the next 1 to 2 weeks. This is low risk for drug-resistant organisms and WBC count was never elevated was never septic, and likely abdominal infection is community-acquired. Problem list: Abdominal pain - likely related to right colonic inflammation with abscess s/p IR drainage. Unclear if this is post-op complication Abdominal abscess - d/w IR to drain, culture, and will cont empiric zosyn for today, d/c on empiric cipro + metronidazole, will change antibiotics based on final culture Anemia - Hb 12.3 on last admission, now 9.2, iron consistent with inflammatory anemia, B12 WNL Severe protein calorie malnutrition - possibly related to poor PO intake related to above Hypokalemia - likely due to poor PO intaked, replaced IV, checked mag level. Greater than 30 minutes spent on d/c home with self care and outpatient fu with general surgery and consideration of interval repeat CT. Will f/u on cultures Discharge Information Condition at Discharge: Improved Follow Up: Weeks (1) Disposition/Orders: D/C to Home Scheduled Ciprofloxacin Hcl (Cipro) 250 Mg Tablet, 500 MG PO BID for Intrabdominal infection for 7 Days, #28 Prescribed by: ROVERTO BUTLER MD on 05/08/21 0921 Dextroamphetamine/Amphetamine (Adderall Xr 30 Mg Capsule) 30 Mg Cap.er.24h, 1 CAP PO DAILY for pt MDD 1 Capsule(s) for 30 Days, #30 Ref 0 (Reported) Entered as Reported by: JELANI STILL on 05/06/211855 Last Action: New Order on 05/06/211855 by JELANI STILL Metronidazole (Metronidazole) 500 Mg Tablet, 500 MG PO Q8HRS for Intrabdominal infection for 7 Days, #21 Prescribed by: ROVERTO BUTLER MD on 05/08/21 0921 Justicifation of Admission Dx: Justifications for Admission: Justification of Admission Dx: Yes ROVERTO BUTLER MD May 08, 2021 09:26
[2021-05-08] MEDS: LACTOBACILLUS RHAMNOSUS GG 1 CAPSULE. PO SCH (09:37)
--- NOTE | 2021-05-08 09:58 | PDOC ---
PROGRESS NOTES Date of Service DATE: 05/08/21 TIME: 09:57 Subjective Subjective feels well, denies pain Objective Objective Vital Signs Date Time Temp Pulse Resp B/P (MAP) Pulse Ox O2 Delivery O2 Flow Rate FiO2 05/08/21 07:00 97.3 86 18 106/74 (85) 97 Room Air 97.3 05/06/21 16:45 2.0 Intake and Output 05/08/21 07:00 Intake Total 800 ml Balance 800 ml Intake Oral 800 ml # Voids 2 Physical Exam Abdomen: Soft, No tenderness Heart: Regular rate Extremities: No clubbing, No cyanosis General: Alert, Oriented X3 Neuro: Normal speech Psych/Mental Status: Mental status NL Assessment Assessment Problems Medical Problems: (1) Post-operative infection Status: Acute Plan Plan of Care OK to discharge on PO abx; FU in office this week Comment Review of Relevant I have reviewed the following items eliseo (where applicable) has been applied. Labs Laboratory Tests Test 05/06/21 13:48 05/06/21 14:03 05/06/21 14:06 05/07/21 07:45 Urine Collection Type Void Urine Color Yellow Urine Clarity Clear Urine pH 5.5 (<5.0-8.0) Urine Specific [place] >=1.030 (1.000-1.030) Urine Protein Negative mg/dL (NEG-TRACE) Urine Glucose (UA) Negative mg/dL (NEG) Urine Ketones (Stick) Trace mg/dL (NEG) Urine Blood Large (NEG) Urine Nitrite Negative (NEG) Urine Bilirubin Negative (NEG) Urine Urobilinogen Dipstick 1.0 mg/dL (0.2 mg/dL) Urine Leukocyte Esterase Negative (NEG) Urine RBC 11-20 /HPF (0-2) Urine WBC Occ /HPF (0-4) Urine Squamous Epithelial Cells Mod /LPF Urine Bacteria Few /HPF (0-FEW) White Blood Count 9.8 x10^3/uL (4.0-11.0) 6.2 x10^3/uL (4.0-11.0) Red Blood Count 3.33 x10^6/uL (3.50-5.40) 3.05 x10^6/uL (3.50-5.40) Hemoglobin 9.2 g/dL (12.0-15.5) 8.5 g/dL (12.0-15.5) Hematocrit 28.7 % (36.0-47.0) 26.4 % (36.0-47.0) Mean Corpuscular Volume 86 fL (79-100) 87 fL (79-100) Mean Corpuscular Hemoglobin 28 pg (25-35) 28 pg (25-35) Mean Corpuscular Hemoglobin Concent 32 g/dL (31-37) 32 g/dL (31-37) Red Cell Distribution Width 13.6 % (11.5-14.5) 13.8 % (11.5-14.5) Platelet Count 461 x10^3/uL (140-400) 400 x10^3/uL (140-400) Neutrophils (%) (Auto) 78 % (31-73) 63 % (31-73) Lymphocytes (%) (Auto) 15 % (24-48) 28 % (24-48) Monocytes (%) (Auto) 6 % (0-9) 8 % (0-9) Eosinophils (%) (Auto) 0 % (0-3) 1 % (0-3) Basophils (%) (Auto) 0 % (0-3) 0 % (0-3) Neutrophils # (Auto) 7.7 x10^3/uL (1.8-7.7) 3.9 x10^3/uL (1.8-7.7) Lymphocytes # (Auto) 1.5 x10^3/uL (1.0-4.8) 1.7 x10^3/uL (1.0-4.8) Monocytes # (Auto) 0.6 x10^3/uL (0.0-1.1) 0.5 x10^3/uL (0.0-1.1) Eosinophils # (Auto) 0.0 x10^3/uL (0.0-0.7) 0.1 x10^3/uL (0.0-0.7) Basophils # (Auto) 0.0 x10^3/uL (0.0-0.2) 0.0 x10^3/uL (0.0-0.2) Erythrocyte Sedimentation Rate > 130 (0-25) Sodium Level 138 mmol/L (136-145) 139 mmol/L (136-145) Potassium Level 3.3 mmol/L (3.5-5.1) 3.8 mmol/L (3.5-5.1) Chloride Level 100 mmol/L (98-107) 103 mmol/L (98-107) Carbon Dioxide Level 29 mmol/L (21-32) 27 mmol/L (21-32) Anion Gap 9 (6-14) 9 (6-14) Blood Urea Nitrogen 8 mg/dL (7-20) 6 mg/dL (7-20) Creatinine 0.6 mg/dL (0.6-1.0) 0.6 mg/dL (0.6-1.0) Estimated GFR (Cockcroft-Gault) 117.4 117.4 BUN/Creatinine Ratio 13 (6-20) 10 (6-20) Glucose Level 88 mg/dL (70-99) 92 mg/dL (70-99) Lactic Acid Level 0.8 mmol/L (0.4-2.0) Calcium Level 8.8 mg/dL (8.5-10.1) 8.3 mg/dL (8.5-10.1) Magnesium Level 2.0 mg/dL (1.8-2.4) Iron Level 24 ug/dL (50-170) Total Iron Binding Capacity 205 ug/dL (250-450) Iron Saturation 12 % (15-34) Total Bilirubin 0.3 mg/dL (0.2-1.0) 0.3 mg/dL (0.2-1.0) Aspartate Amino Transf (AST/SGOT) 24 U/L (15-37) 14 U/L (15-37) Alanine Aminotransferase (ALT/SGPT) 30 U/L (14-59) 25 U/L (14-59) Alkaline Phosphatase 172 U/L (46-116) 126 U/L (46-116) C-Reactive Protein, Quantitative 202.5 mg/L (0-3.3) Total Protein 7.7 g/dL (6.4-8.2) 6.5 g/dL (6.4-8.2) Albumin 2.5 g/dL (3.4-5.0) 2.0 g/dL (3.4-5.0) Albumin/Globulin Ratio 0.5 (1.0-1.7) 0.4 (1.0-1.7) Vitamin B12 Level 703 pg/mL (247-911) Bedside Urine HCG, Qualitative Hcg negative (Negative) Test 05/08/21 07:30 White Blood Count 5.8 x10^3/uL (4.0-11.0) Red Blood Count 3.30 x10^6/uL (3.50-5.40) Hemoglobin 9.3 g/dL (12.0-15.5) Hematocrit 28.4 % (36.0-47.0) Mean Corpuscular Volume 86 fL (79-100) Mean Corpuscular Hemoglobin 28 pg (25-35) Mean Corpuscular Hemoglobin Concent 33 g/dL (31-37) Red Cell Distribution Width 13.5 % (11.5-14.5) Platelet Count 501 x10^3/uL (140-400) Neutrophils (%) (Auto) 64 % (31-73) Lymphocytes (%) (Auto) 27 % (24-48) Monocytes (%) (Auto) 7 % (0-9) Eosinophils (%) (Auto) 2 % (0-3) Basophils (%) (Auto) 0 % (0-3) Neutrophils # (Auto) 3.7 x10^3/uL (1.8-7.7) Lymphocytes # (Auto) 1.5 x10^3/uL (1.0-4.8) Monocytes # (Auto) 0.4 x10^3/uL (0.0-1.1) Eosinophils # (Auto) 0.1 x10^3/uL (0.0-0.7) Basophils # (Auto) 0.0 x10^3/uL (0.0-0.2) Laboratory Tests Test 05/08/21 07:30 White Blood Count 5.8 x10^3/uL (4.0-11.0) Red Blood Count 3.30 x10^6/uL (3.50-5.40) Hemoglobin 9.3 g/dL (12.0-15.5) Hematocrit 28.4 % (36.0-47.0) Mean Corpuscular Volume 86 fL (79-100) Mean Corpuscular Hemoglobin 28 pg (25-35) Mean Corpuscular Hemoglobin Concent 33 g/dL (31-37) Red Cell Distribution Width 13.5 % (11.5-14.5) Platelet Count 501 x10^3/uL (140-400) Neutrophils (%) (Auto) 64 % (31-73) Lymphocytes (%) (Auto) 27 % (24-48) Monocytes (%) (Auto) 7 % (0-9) Eosinophils (%) (Auto) 2 % (0-3) Basophils (%) (Auto) 0 % (0-3) Neutrophils # (Auto) 3.7 x10^3/uL (1.8-7.7) Lymphocytes # (Auto) 1.5 x10^3/uL (1.0-4.8) Monocytes # (Auto) 0.4 x10^3/uL (0.0-1.1) Eosinophils # (Auto) 0.1 x10^3/uL (0.0-0.7) Basophils # (Auto) 0.0 x10^3/uL (0.0-0.2) Microbiology 05/06/21 Blood Culture - Preliminary, Resulted NO GROWTH AFTER 1 DAY 05/06/21 Gram Stain - Final, Resulted 05/06/21 Aerobic and Anaerobic Culture, Resulted Pending Medications Current Medications Sodium Chloride 1,000 ml @ 1,000 mls/hr Q1H IV Last administered on 05/06/21at 15:04; Start 05/06/21 at 13:30; Stop 05/06/21 at 14:29; Status DC Piperacillin Sod/ Tazobactam Sod 3.375 gm/Sodium Chloride 50 ml @ 100 mls/hr 1X ONCE IV ; Start 05/06/21 at 13:30; Stop 05/06/21 at 13:59; Status DC Sodium Chloride 1,000 ml @ 125 mls/hr Q8H IV Last administered on 05/07/21at 05:27; Start 05/06/21 at 15:15; Stop 05/07/21 at 15:14; Status DC Potassium Chloride/Dextrose/ Sod Cl 1,000 ml @ 80 mls/hr [id number] IV Last administered on 05/06/21at 18:03; Start 05/06/21 at 15:15; Stop 05/07/21 at 03:44; Status DC Lidocaine HCl (Buffered Lidocaine 1%) 3 ml STK-MED ONCE .ROUTE ; Start 05/06/21 at 15:29; Stop 05/06/21 at 15:29; Status DC Midazolam HCl (Versed) 5 mg STK-MED ONCE .ROUTE ; Start 05/06/21 at 15:42; Stop 05/06/21 at 15:42; Status DC Fentanyl Citrate (Fentanyl 2ml Vial) 100 mcg STK-MED ONCE .ROUTE ; Start 05/06/21 at 15:42; Stop 05/06/21 at 15:42; Status DC Lidocaine HCl (Buffered Lidocaine 1%) 3 ml STK-MED ONCE .ROUTE ; Start 05/06/21 at 16:09; Stop 05/06/21 at 16:09; Status DC Fentanyl Citrate (Fentanyl 2ml Vial) 100 mcg STK-MED ONCE .ROUTE ; Start 05/06/21 at 16:12; Stop 05/06/21 at 16:13; Status DC Lidocaine HCl (Buffered Lidocaine 1%) 3 ml 1X ONCE IJ Last administered on 05/06/21at 16:33; Start 05/06/21 at 16:30; Stop 05/06/21 at 16:31; Status DC Midazolam HCl (Versed) 5 mg 1X ONCE IV Last administered on 05/06/21at 16:30; Start 05/06/21 at 16:30; Stop 05/06/21 at 16:31; Status DC Midazolam HCl (Versed) 2 mg 1X ONCE IV ; Start 05/06/21 at 16:30; Stop 05/06/21 at 16:36; Status DC Lidocaine HCl (Buffered Lidocaine 1%) 3 ml STK-MED ONCE .ROUTE ; Start 05/06/21 at 16:18; Stop 05/06/21 at 16:18; Status DC Piperacillin Sod/ Tazobactam Sod 3.375 gm/Sodium Chloride 50 ml @ 100 mls/hr Q6HRS IV ; Start 05/06/21 at 18:00; Stop 05/06/21 at 17:01; Status DC Acetaminophen (Tylenol) 650 mg PRN Q6HRS PRN PO MILD PAIN / TEMP > 100.3'F; Start 05/06/21 at 16:30 Ondansetron HCl (Zofran) 4 mg PRN Q4HRS PRN IVP NAUSEA/VOMITING; Start 05/06/21 at 16:30 Tramadol HCl (Ultram) 50 mg PRN Q6HRS PRN PO MODERATE-SEVERE PAIN Last administered on 05/07/21at 03:34; Start 05/06/21 at 16:30 Fentanyl Citrate (Fentanyl 2ml Vial) 25 mcg PRN Q3HRS PRN IVP MOD-SEV PAIN, 2ND CHOICE; Start 05/06/21 at 16:30 Fentanyl Citrate (Fentanyl 2ml Vial) 100 mcg 1X ONCE IV Last administered on 05/06/21at 16:45; Start 05/06/21 at 16:45; Stop 05/06/21 at 16:46; Status DC Influenza Virus Vaccine Quadrival (Flulaval Quad [id number] Syringe) 0.5 ml ONCE ONCE VAX IM ; Start 05/06/21 at 17:00; Stop 05/06/21 at 17:04; Status DC Piperacillin Sod/ Tazobactam Sod 3.375 gm/Sodium Chloride 50 ml @ 100 mls/hr Q6HRS IV Last administered on 05/08/21at 07:04; Start 05/06/21 at 18:00 Morphine Sulfate (Morphine Sulfate) 2 mg PRN Q2HR PRN IVP MOD-SEV PAIN, 1ST CHOICE Last administered on 05/07/21at 19:42; Start 05/06/21 at 17:45 Zolpidem Tartrate (Ambien) 5 mg PRN QHS PRN PO INSOMNIA Last administered on 05/07/21at 21:23; Start 05/06/21 at 17:45 Lorazepam (Ativan) 0.5 mg PRN Q8HRS PRN PO ANXIETY / AGITATION Last administered on 05/06/21at 21:18; Start 05/06/21 at 17:45 Lactobacillus Rhamnosus (Culturelle) 1 cap BID PO Last administered on 05/08/21at 09:37; Start 05/07/21 at 21:00 Ibuprofen (Motrin) 600 mg PRN Q6HRS PRN PO INFLAMMATION Last administered on 05/08/21 07:09; Start 05/07/21 at 19:30 Hydroxyzine HCl (Atarax) 10 mg PRN Q6HRS PRN PO ITCHING Last administered on 05/08/21at 09:37; Start 05/08/21 at 09:15 Ciprofloxacin (Cipro) 500 mg BID PO Last administered on 05/08/21at 09:37; Start 05/08/21 at 09:15 Metronidazole (Flagyl) 500 mg Q8HRS PO Last administered on 05/08/21at 09:37; Start 05/08/21 at 09:15 Active Scripts Active Metronidazole 500 Mg Tablet 500 Mg PO Q8HRS 7 Days Cipro (Ciprofloxacin Hcl) 250 Mg Tablet 500 Mg PO BID 7 Days Reported Adderall Xr 30 Mg Capsule (Dextroamphetamine/Amphetamine) 30 Mg Cap.er.24h 1 Cap PO DAILY MDD 1 Capsule(s) 30 Days Vitals/I & O Vital Sign - Last 24 Hours 05/07/21 05/07/21 05/07/21 05/07/21 11:00 13:37 14:08 15:00 Temp 97.7 98.5 97.7 98.5 Pulse 94 86 Resp 18 20 B/P (MAP) 119/80 (93) 100/71 (81) Pulse Ox 98 98 O2 Delivery Room Air Room Air Room Air Room Air 05/07/21 05/07/21 05/07/21 05/07/21 19:00 19:40 19:42 20:12 Temp 98.2 98.2 Pulse 81 Resp 18 20 20 B/P (MAP) 106/75 (85) Pulse Ox 97 O2 Delivery Room Air Room Air Room Air Room Air 05/07/21 05/08/21 05/08/21 23:00 03:00 07:00 Temp 98.4 97.6 97.3 98.4 97.6 97.3 Pulse 68 78 86 Resp 14 18 18 B/P (MAP) 90/41 (57) 93/57 (69) 106/74 (85) Pulse Ox 98 98 97 O2 Delivery Room Air Room Air Room Air Intake and Output 05/07/21 05/07/21 05/08/21 15:00 23:00 07:00 Intake Total 200 ml 240 ml 360 ml Balance 200 ml 240 ml 360 ml Justifications for Admission Other Justification LYNDON SALCEDO MD May 08, 2021 09:58
--- NOTE | 2021-05-08 10:45 | NUR ---
During discharge teaching patient began to vomit. Patient stated " I am still going home, it is all the medications together." Patient educated on antibiotic side effects and educational resources given to patient on medications. Patient stated " I have left over medication from the doctor here, I am just going to take that for the nausea." Patients mother stated " She's just so sensitive, she's tough with everything else but here in the hospital just sensitive. I had not noticed that until now. " Patient wanted discharge teaching to continue. Patient stated she felt better. Patient stated " I will look up the stretches for the groin. " Patients mother wanted a print out for a groin sprain. Print out has been given. Patient discharged home.
[2021-05-16] MEDS ORDERED: CEFU500T46 PO (07:18)
== END 2021-05-08 10:45 | disposition home or self-care (01) | DRG 862 ==
LOC: ER 13:13 → 4 NORTH 15:00 → OBSVTOIN 15:00 → ER 17:01
PROVIDERS: ADMIT Internal Medicine; ATTEND Internal Medicine
PROC: 0D9H3ZZ Drainage of Cecum, Percutaneous Approach (ICD-10-PCS; principal; 2021-05-06)
DX: T81.40XA Infection following a procedure, unspecified, initial encounter (principal); K35.33 Acute appendicitis with perforation, localized peritonitis, and gangrene, with abscess; E43 Unspecified severe protein-calorie malnutrition; L02.211 Cutaneous abscess of abdominal wall; Y83.8 Other surgical procedures as the cause of abnormal reaction of the patient, or of later complication, without mention of misadventure at the time of the procedure; Y92.89 Other specified places as the place of occurrence of the external cause; Z68.27 Body mass index [BMI] 27.0-27.9, adult; N83.201 Unspecified ovarian cyst, right side; N83.202 Unspecified ovarian cyst, left side; Z90.49 Acquired absence of other specified parts of digestive tract; D64.9 Anemia, unspecified; Z88.2 Allergy status to sulfonamides; E87.6 Hypokalemia
CPT/HCPCS: 10009; 36415; 80053; 81001; 81025; 82607; 83540; 83550; 83605; 83735; 85025; 85651; 86140; 87040; 87071; 87075; 87076; 87077; 87186; 96361; 96374; 96375; 99152; 99153; G0378; G0379; J2250; J2270; J2543; J3010; J3480; J3490; J7030; 99285-25